=== PATIENT | male | born 1950 | race Caucasian/White ===

== ENCOUNTER 2017-06-29 04:47 | Inpatient (IN) | payer MEDICARE, BC ==
[2017-06-29] MEDS ORDERED: methylPREDNISolone Sod Succ/PF 125 MG/2 ML VIAL ONE (05:09)
[2017-06-29 05:34] LABS: #Basophils 0.1 thou/uL (0.0-0.2); #Eosinphils 0.2 thou/uL (0.0-0.7); #Lymphocytes 2.1 thou/uL (1.20-3.40); #Monocytes 0.8 thou/uL (0.11-0.59); #Neutrophils 4.6 thou/uL (1.40-6.50); %Basophils 0.7 % (0.0-1.0); %Eosinophils 3.1 % (0.0-10.0); %Lymphocytes 27.1 % (21.0-51.0); %Monocytes 9.7 % (0.0-10.0); %Neutrophils 59.3 % (42.0-75.0); Mean Corpuscular HGB CONC 33.4 g/dL (32.0-36.0); Mean Corpuscular Hemoglobin 30.9 pg (27.0-31.0); Mean Corpuscular Volume 92.6 fl (80.0-94.0); Mean Platelet Volume 8.8 fL (7.4-10.4); Platelet Count 177 thou/uL (130-400); RBC Distribution Width 12.8 % (11.5-14.5); White Blood Cell (WBC) Count 7.8 thou/uL (4.8-10.8)
[2017-06-29 05:53] LABS: ALT (SGPT) 27 U/L (8-55); AST (SGOT) 20 U/L (5-34); Alkaline Phosphatase 94 U/L (40-150); Anion Gap 14 mmol/L (10-20); BUN (Urea Nitrogen) 17 mg/dL (8.4-25.7); Bilirubin, Total 0.6 mg/dL (0.2-1.2); Calc. Creatinine Clearance 0 mL/min (70-130); Carbon Dioxide 20 mmol/L (23-31); Chloride 110 mmol/L (98-107); Estimated GFR-MDRD 59; Globulin 3.3 g/dL (2.4-3.5); Glucose 99 mg/dL (80-115); Potassium 4.4 mmol/L (3.5-5.1); Protein, Total 7.3 g/dL (5.8-8.1); Sodium 140 mmol/L (136-145)
[2017-06-29 05:55] LABS: CKMB 2.6 ng/mL (0-6.6); Troponin I 0.071 ng/mL (< 0.028)
[2017-06-29] MEDS ORDERED: Furosemide 100 MG/10 ML VIAL ONE (06:40)
--- NOTE | 2017-06-29 08:08 | RAD ---
CHEST ONE VIEW PORTABLE: History: 66-year-old male with chest pain and shortness of breath. Comparison: 10-27-15 FINDINGS: Borderline cardiomegaly with post op underlying sternotomy and left ICD changes. Mild bilateral vascu lar congestion, overall stable from prior study. No confluent pneumonia or other acute process. IMPRESSION: Stable bilateral vascular congestion. POS: [facility]
--- NOTE | 2017-06-29 08:18 | PDOC.FPRHP ---
- History of Present Illness Chief Complaint: SOB History of Present Illness: Patient with known CAD and CHF EF25% who presents acutely short of breath starting this morning at 4 AM. He was lying flat and woke up and could not catch his breath. He has not had recent cough, fever, or chills. he has been taking his medications only intermittedly. no leg pain or swelling. says he snores so loud, she cant sleep in the same room and children have all witnessed apneic events when he sleeps. ED Course: recieved duoneb, IV steroids, and IV lasix - Allergies/Adverse Reactions Allergies Allergy/AdvReac Type Severity Reaction Status Date / Time No Known Allergies Allergy Verified 03/07/15 00:33 - Home Medications Medication Instructions Recorded Confirmed Type Atorvastatin Calcium [Lipitor] 40 mg PO HS #0 tab 03/09/15 06/29/17 Rx Lisinopril [Zestril] 5 mg PO DAILY #0 tab 03/09/15 Rx Furosemide [Lasix] 40 mg PO DAILY 06/29/17 06/29/17 History Metoprolol Succinate [Toprol XL] 25 mg PO BID 06/29/17 History - History PMHx: CAD, CHF EF 25%, circulatory issues in feet, close to emphysema, likely sleep apnea, skin cancer (possibly [place]) PSHx: 3 Vessel CABG, stents in vessels in legs, FHx: Cancer of the lung, and throat, Social: 1-2 packs a day for 45 years, beers 12 on a weekend, - Review of Systems General: denies: fever/chills, weight/appetite/sleep changes, night sweats Eyes: denies: eye pain, vision changes ENT: denies: nasal congestion, rhinorrhea Respiratory: reports: cough, shortness of breath. denies: congestion Cardiovascular: reports: edema, paroxysmal nocturnal dyspnea, orthopnea. denies : chest pain, palpitation Gastrointestinal: denies: nausea, vomiting, diarrhea, constipation Genitourinary: denies: incontinence, dysuria Skin: denies: rashes, lesions Musculoskeletal: denies: pain, tenderness, stiffness Neurological: denies: numbness, syncope Psychological: denies: anxiety, depression - Vital signs BP: 177/90 HR: 79 RR: 24 Tmax: 97.6 Pox: 98% on 2L Wt: 104 kg - Physical Exam Constitutional: NAD, awake, alert and oriented, well developed -Constitutional: Obese, apparent apnea when sleeping Neck: supple, FROM, trachea midline Chest: no-tender to palpation, no lesions Heart: RRR, normal S1/S2, no murmurs/rubs/gallops -Lungs: Bibasilar crackles, other [place] CTAB Musculoskeletal: normal structure, normal tone, ROM grossly normal Neurological: no focal deficit, CN II-XII intact, normal sensation Skin: no rash/lesions, good turgor Heme/Lymphatic: no unusual bruising or bleeding, no purpura, no petechia Psychiatric: normal mood and affect, good judgment and insight, intact recent and remote memory FMR H&P: Results - Labs Result Diagrams: 06/29/17 05:17 06/29/17 05:17 Lab results: WBC 7.8 thou/uL (4.8-10.8) 06/29/17 05:17 Hgb 17.0 g/dL (14.0-18.0) 06/29/17 05:17 Hct 50.9 % (42.0-52.0) 06/29/17 05:17 MCV 92.6 fl (80.0-94.0) 06/29/17 05:17 Plt Count 177 thou/uL (130-400) 06/29/17 05:17 Neutrophils % 59.3 % (42.0-75.0) 06/29/17 05:17 Sodium 140 mmol/L (136-145) 06/29/17 05:17 Potassium 4.4 mmol/L (3.5-5.1) 06/29/17 05:17 Chloride 110 mmol/L (98-107) H 06/29/17 05:17 Carbon Dioxide 20 mmol/L (23-31) L 06/29/17 05:17 BUN 17 mg/dL (8.4-25.7) 06/29/17 05:17 Creatinine 1.24 mg/dL (0.6-1.3) 06/29/17 05:17 Glucose 99 mg/dL (80-115) 06/29/17 05:17 Lactic Acid 2.3 mmol/L (0.5-2.2) H 06/29/17 05:17 Calcium 9.0 mg/dL (7.8-10.44) 06/29/17 05:17 Total Bilirubin 0.6 mg/dL (0.2-1.2) 06/29/17 05:17 AST 20 U/L (5-34) 06/29/17 05:17 ALT 27 U/L (8-55) 06/29/17 05:17 Alkaline Phosphatase 94 U/L (40-150) 06/29/17 05:17 CK-MB (CK-2) 2.6 ng/mL (0-6.6) 06/29/17 05:17 B-Natriuretic Peptide 882.8 pg/mL (0-100) H 06/29/17 05:17 Serum Total Protein 7.3 g/dL (5.8-8.1) 06/29/17 05:17 Albumin 4.0 g/dL (3.4-4.8) 06/29/17 05:17 Laboratory Tests 06/29/17 06/29/17 06/29/17 05:17 08:09 11:29 Troponin I 0.071 H 0.064 H 0.053 H - EKG Interpretation EKG: NSR with infrequent PAC and non specific changes to T waves in II and anterior leads, poor R wave progression. - Radiology Interpretation Chest x-ray Status: image reviewed by me, report reviewed by me Additional comment: pulmonary edema. no lobar consolidation. FMR H&P: A/P - Problem List (1) Acute on chronic systolic (congestive) heart failure Current Visit: No Status: Acute Code(s): I50.23 - ACUTE ON CHRONIC SYSTOLIC (CONGESTIVE) HEART FAILURE (2) CKD (chronic kidney disease) stage 3, GFR 30-59 ml/min Current Visit: Yes Status: Chronic Code(s): N18.3 - CHRONIC KIDNEY DISEASE, STAGE 3 (MODERATE) (3) COPD (chronic obstructive pulmonary disease) Current Visit: No Status: Acute Qualifiers: COPD type: emphysema (4) Coronary artery disease Current Visit: No Status: Chronic Code(s): I25.10 - ATHSCL HEART DISEASE OF [place] CORONARY ARTERY W/O ANG PCTRS Qualifiers: Coronary Disease-Associated Artery/Lesion type: bypass graft (5) Peripheral vascular disease Current Visit: No Status: Chronic Code(s): I73.9 - PERIPHERAL VASCULAR DISEASE, UNSPECIFIED (6) Tobacco abuse Current Visit: No Status: Chronic Code(s): Z72.0 - TOBACCO USE (7) Hypertensive urgency Current Visit: Yes Status: Suspected Code(s): I16.0 - HYPERTENSIVE URGENCY Assessment and Plan: - Plan 1. Acute on chronic CHF exacerbation, EF 25% with 2/3 diastolic failure- CXR and symptoms consistent with PND with pulmonary edema. He takes his medications intermittedly. He has single chamber ICD from 2016. Will diurese and continue o2 supplementation. optimize home meds and encourage compliance. 2. Hypertensive urgency, resolved- some initial pressures were 200s/120s. He does not know his baseline but he does not take his BP consistently. with SOB, cannot rule out related to BP but more likely SOB is related to CHF. BP improved significantly with one dose of hydralazine to 165/90. restart oral home meds. 3. Chronic uncontrolled HTN- Restart lisinopril and metoprol and monitor. 4. CAD s/p CABG- cont asa and statin 5. CKD 3- monitor with diarusisl. 6. Suspected ZOE-will use CPAP at night. 7. COPD- Duonebs as a trial for symptomatic relief 8. Tobacco abuse- strongly suggest to quit. 9. Binge drinking- will service counselor against on weekends. DVT ppx lovenox Disposition/LOS: Inpatient, likely 3 days Attending Addendum - Attending Addendum Date/Time: 06/29/17 375 I personally evaluated the patient and discussed the management with Dr. Stevenson. I agree with the History, Examination, Assessment and Plan documented above with any addition or exceptions noted below. The patient presented to the ER with acute onset of shortness of breath. Symptoms consistent with CHF exacerbation, hypertensive urgency, ckd. Patient was seen in the ER this morning at 1000.
[2017-06-29] MEDS ORDERED: hydrALAZINE 20 MG/ML VIAL ONE (08:42)
[2017-06-29 08:54] LABS: Troponin I 0.064 ng/mL (< 0.028)
[2017-06-29 09:28] LABS: Lactic Acid 2.4 mmol/L (0.5-2.2)
[2017-06-29] MEDS ORDERED: Ondansetron ODT 4 MG TAB PO PRN (09:50)
[2017-06-29] MEDS ORDERED: Calcium Carbonate 500 MG ChewTAB PO PRN (09:50)
[2017-06-29] MEDS ORDERED: Acetaminophen 325 MG TAB PO PRN (09:50)
[2017-06-29] MEDS ORDERED: Nicotine 21 MG PATCH TD SCH (11:00)
[2017-06-29] MEDS ORDERED: Enoxaparin Sodium 40 MG/0.4 ML SYRINGE SC SCH (11:00)
[2017-06-29] MEDS ORDERED: Enoxaparin Sodium 40 MG/0.4 ML SYRINGE ONE (11:02)
[2017-06-29 12:06] LABS: Troponin I 0.053 ng/mL (< 0.028)
[2017-06-29 19:28] VITALS: BMI 34.4
[2017-06-29] MEDS: Furosemide 40 MG/4 ML VIAL SLOW IVP SCH (20:33)
[2017-06-29] MEDS ORDERED: Atorvastatin Calcium 40 MG TAB PO SCH (21:00)
[2017-06-29] MEDS: Famotidine 20 MG TAB PO SCH (21:45)
[2017-06-30] MEDS: Furosemide 40 MG/4 ML VIAL SLOW IVP SCH ×2 (05:21→13:13)
[2017-06-30 07:22] LABS: Lactic Acid 1.5 mmol/L (0.5-2.2)
[2017-06-30 07:25] LABS: Anion Gap 15 mmol/L (10-20); Calc. Creatinine Clearance 88 mL/min (70-130); Calcium 9.1 mg/dL (7.8-10.44); Carbon Dioxide 24 mmol/L (23-31); Chloride 105 mmol/L (98-107); Estimated GFR-MDRD 60; Glucose 103 mg/dL (80-115); Potassium 4.3 mmol/L (3.5-5.1); Sodium 140 mmol/L (136-145)
[2017-06-30] MEDS: Famotidine 20 MG TAB PO SCH (08:02)
[2017-06-30 08:21] LABS: BUN (Urea Nitrogen) 22 mg/dL (8.4-25.7)
--- NOTE | 2017-06-30 08:40 | PDOC.FM ---
- Subjective Subjective: Patient reports that his breathing has improved significantly since admission. He is on 1.5L O2 at this time. He slept well overnight is eating without problems. Denies any LE swelling or chest pain. - Objective MAR Reviewed: Yes Vital Signs & Weight: Vital Signs (12 hours) Temp Pulse Resp BP BP BP Pulse Ox 06/30/17 08:03 144/65 H 06/30/17 07:48 98.0 F 70 20 144/65 H 97 06/30/17 07:02 99 06/30/17 06:59 73 16 99 06/30/17 03:20 98.0 F 74 14 146/69 H 96 06/30/17 00:00 98.1 F 69 18 129/63 94 L Weight Weight 102.875 kg I&O: 06/29/17 06/30/17 07/01/17 06:59 06:59 06:59 Intake Total 240 Output Total 100 Balance 140 Result Diagrams: 06/29/17 05:17 06/30/17 06:51 <Marisol Thurman - Last Filed: 06/30/17 08:39> - Objective Vital Signs & Weight: Vital Signs (12 hours) Temp Pulse Resp BP BP BP BP 06/30/17 11:12 97.9 F 60 22 H 131/62 06/30/17 10:40 58 L 18 06/30/17 08:03 144/65 H 06/30/17 08:00 98.0 F 70 20 06/30/17 07:48 98.0 F 70 20 144/65 H 06/30/17 07:02 06/30/17 06:59 73 16 06/30/17 03:20 98.0 F 74 14 146/69 H Pulse Ox 06/30/17 11:12 95 06/30/17 10:40 97 06/30/17 08:03 06/30/17 08:00 97 06/30/17 07:48 97 06/30/17 07:02 99 06/30/17 06:59 99 06/30/17 03:20 96 Weight Weight 102.875 kg I&O: 06/29/17 06/30/17 07/01/17 06:59 06:59 06:59 Intake Total 240 Output Total 100 Balance 140 Result Diagrams: 06/29/17 05:17 06/30/17 06:51 <Salma Hanson - Last Filed: 06/30/17 12:59> Phys Exam - Physical Examination Constitutional: NAD HEENT: moist MMs Respiratory: no wheezing, no rales, no rhonchi, clear to auscultation bilateral Cardiovascular: RRR, no significant murmur, no rub Gastrointestinal: soft, non-tender, no distention, positive bowel sounds Musculoskeletal: no edema, pulses present Neurological: non-focal, normal sensation, moves all 4 limbs Psychiatric: normal affect, A&O x 3 Skin: normal turgor, cap refill <2 seconds <Marisol Thurman - Last Filed: 06/30/17 08:39> Dx/Plan (1) CKD (chronic kidney disease) stage 3, GFR 30-59 ml/min Code(s): N18.3 - CHRONIC KIDNEY DISEASE, STAGE 3 (MODERATE) Status: Chronic (2) Hypertensive urgency Code(s): I16.0 - HYPERTENSIVE URGENCY Status: Suspected (3) Acute on chronic systolic (congestive) heart failure Code(s): I50.23 - ACUTE ON CHRONIC SYSTOLIC (CONGESTIVE) HEART FAILURE Status : Acute (4) COPD (chronic obstructive pulmonary disease) Status: Acute QualifierTitle: COPD type: emphysema (5) Coronary artery disease Code(s): I25.10 - ATHSCL HEART DISEASE OF [place] CORONARY ARTERY W/O ANG PCTRS Status: Chronic QualifierTitle: Coronary Disease-Associated Artery/Lesion type: bypass graft [place] vs. transplanted heart: [place] heart Associated angina: angina presence unspecified Qualified Code(s): I25.810 - Atherosclerosis of coronary artery bypass graft(s) without angina pectoris (6) Peripheral vascular disease Code(s): I73.9 - PERIPHERAL VASCULAR DISEASE, UNSPECIFIED Status: Chronic (7) Tobacco abuse Code(s): Z72.0 - TOBACCO USE Status: Chronic - Plan Plan: Acute on chronic CHF exacerbation The patient's EF 25% is with 2/3 diastolic failure. His CXR and symptoms consistent with PND with pulmonary edema. He takes his medications intermittently. He has single chamber ICD from 2016. BNP 882.8 -Monitor on tele -Lasix 40mg IV BID -O2 prn, has been on 1.5 L, but was satting 97% - took off O2 this AM and will see how the patient does off oxygen. -Encouraged medication compliance -Repeat CXR this AM Hypertensive urgency, resolved Initial pressures were 200s/120s. He does not know his baseline but he does not take his BP consistently. The patient had SOB, so cannot rule out related to BP, but more likely SOB is related to CHF. BP improved significantly with one dose of hydralazine to 165/90. -Restart oral home meds (Entresto, Metoprolol) -Monitor BP Chronic uncontrolled HTN -Restart Entresto and metoprol and monitor. CAD s/p CABG -cont asa and statin CKD 3 -Monitor with diuresis, appears at baseline Suspected ZOE -will use CPAP at night. COPD -Duonebs as a trial for symptomatic relief Tobacco abuse Patient has desire to quit. Currently smokes 2ppd -counseled on smoking cessation. -Encouraged f/u with PCP regarding this Binge drinking -Counseled against this Dispo: d/c home once patient is satting > 92% off O2. 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 <Marisol Thurman - Last Filed: 06/30/17 08:39> (1) Acute on chronic systolic (congestive) heart failure Code(s): I50.23 - ACUTE ON CHRONIC SYSTOLIC (CONGESTIVE) HEART FAILURE Status : Acute (2) CKD (chronic kidney disease) stage 3, GFR 30-59 ml/min Code(s): N18.3 - CHRONIC KIDNEY DISEASE, STAGE 3 (MODERATE) Status: Chronic (3) COPD (chronic obstructive pulmonary disease) Status: Acute Qualifiers: COPD type: emphysema (4) Coronary artery disease Code(s): I25.10 - ATHSCL HEART DISEASE OF [place] CORONARY ARTERY W/O ANG PCTRS Status: Chronic Qualifiers: Coronary Disease-Associated Artery/Lesion type: bypass graft [place] vs. transplanted heart: [place] heart Associated angina: angina presence unspecified Qualified Code(s): I25.810 - Atherosclerosis of coronary artery bypass graft(s) without angina pectoris (5) Peripheral vascular disease Code(s): I73.9 - PERIPHERAL VASCULAR DISEASE, UNSPECIFIED Status: Chronic (6) Tobacco abuse Code(s): Z72.0 - TOBACCO USE Status: Chronic (7) Hypertensive urgency Code(s): I16.0 - HYPERTENSIVE URGENCY Status: Suspected <Salma Hanson - Last Filed: 06/30/17 12:59> Attending Addendum - Attending Addendum Date/Time: 06/30/17 [id number] I personally evaluated the patient and discussed the management with Dr. Thurman. I agree with the History, Examination, Assessment and Plan documented above with any addition or exceptions noted below. The patient is doing well. He states he feels better and wants to go home. o2 sats 97% on room air during rounds. If O2 sats remains stable, he will be discharged this afternoon. Discussed importance of getting a primary care physician. Will consider coming to our clinic. <Salma Hanson - Last Filed: 06/30/17 12:59>
[2017-06-30] MEDS ORDERED: Nicotine 21 MG PATCH TD SCH (09:00)
[2017-06-30] MEDS ORDERED: Lisinopril 10 MG TAB PO SCH (09:00)
[2017-06-30] MEDS ORDERED: Prevnar 13-Val Conj/PF 0.5 ML SYRINGE IM ONE (09:00)
[2017-06-30] MEDS ORDERED: Enoxaparin Sodium 40 MG/0.4 ML SYRINGE SC SCH (09:00)
--- NOTE | 2017-06-30 10:11 | RAD ---
RADIOGRAPH CHEST 2 VIEWS: HISTORY: A 66-year-old male with congestive heart failure. FINDINGS: There is no air space density, pulmonary edema, pleural effusion, pneumothorax, or cardiomegaly. The re are sternotomy wires. There is a left subclavian single lead AICD. IMPRESSION: 1. No acute cardiopulmonary findings. 2. Status post coronary artery bypass graft surgery is evidence for coronary atherosclerotic disease ; ICD-10: I25.10. 3. Automatic implantable cardioverter/defibrillator. topher [] POS: [facility]
[2017-06-30 13:40] VITALS: BP 138/65; TEMP 97.6
--- NOTE | 2017-07-01 15:26 | DIS-2 ---
DATE OF ADMISSION: 06/29/2017 DATE OF DISCHARGE: 06/30/2017 ADMITTING RESIDENT: Rob Stevenson MD DISCHARGE RESIDENT: Marisol Thurman MD ATTENDING: Salma Hanson M.D. CONSULTATIONS: None. PROCEDURES: None. PRIMARY DIAGNOSES: 1. Acute on chronic congestive heart failure exacerbation. 2. Hypertensive urgency. SECONDARY DIAGNOSES: 1. Chronic uncontrolled hypertension. 2. Coronary artery disease, status post coronary artery bypass graft. 3. Chronic kidney disease 3. 4. Suspected obstructive sleep apnea. 5. Chronic obstructive pulmonary disease. 6. Tobacco abuse. 7. Binge drinking. DISCHARGE MEDICATIONS: 1. Aspirin 81 mg p.o. daily. 2. Atorvastatin 40 mg p.o. at bedtime. 3. Lasix 40 mg p.o. daily. 4. Metoprolol succinate 12.5 mg p.o. b.i.d. 5. Entresto 49/51 mg one tab p.o. daily. DISCONTINUED MEDICATIONS: None. HISTORY OF PRESENT ILLNESS AND HOSPITAL COURSE: This is a 66-year-old male with past medical history of CHF with an ejection fraction of 25%, who presented to the ER due to acute onset shortness of toña ath that was associated with orthopnea and dyspnea on exertion. The patient was found to have a BNP of 882 and bilateral vascular congestion on a chest x-ray. The patient was treated with Lasix 40 mg IV b.i.d. and his shortness of breath improved significantly. The patient was initially placed on ox ygen and was satting 97%-100% on oxygen. This was able to be weaned off by the patient's second day of hospitalization. The patient also reports intermittently taking medications and initially the pat ient's blood pressures were found to be in the 200s over 120s and so the patient was given hydralazin e, which improved his blood pressure 165/90. The patient was continued on his home medications by [facility] and it was encouraged for him to be more compliant with taking his home medications. Patient als o has suspected obstructive sleep apnea and is recommended for him to follow up [facility]. He was given our clinic card of [facility] to potentiall y follow up at our clinic, as the patient has not actually ever seen Dr. Cohen before and the patien t will hopefully establish with us to potentially worked him up for obstructive sleep apnea. The pat sonja also has a history of tobacco abuse and binge drinking these were both counseled against. DISPOSITION: Stable. DISCHARGE INSTRUCTIONS: 1. Location: Home. 2. Diet: Heart healthy and fluid restricted to 1500 mL. 3. Activity: As tolerated. 4. Follow up with [facility] within 5-[address] Smith within 1 m [facility].
--- NOTE | 2017-07-17 16:30 | EKG ---
Test Reason : Blood Pressure : / mmHG Vent. Rate : 096 BPM Atrial Rate : 096 BPM P-R Int : 178 ms QRS Dur : 082 ms QT Int : 360 ms P-R-T Axes : 065 -13 179 degrees QTc Int : 454 ms Sinus rhythm with Premature atrial complexes Anteroseptal infarct , age undetermined Abnormal ECG Confirmed by HERNÁN GREGORIO ([id number]), pictures editor JUSTINE CASAREZ ([id number]) on 07/17/2017 4:29:44 PM Referred By: Confirmed By:HERNÁN GREGORIO
== END 2017-06-30 13:54 | disposition home or self-care (01) | DRG 291 ==
LOC: ERS 04:47 → ERHOLD 07:17 → 2NO 18:49
PROVIDERS: ADMIT Family Medicine; ATTEND Family Medicine
DX: I13.0 Hypertensive heart and chronic kidney disease with heart failure and stage 1 through stage 4 chronic kidney disease, or unspecified chronic kidney disease (principal); I50.33 Acute on chronic diastolic (congestive) heart failure; J44.9 Chronic obstructive pulmonary disease, unspecified; I73.9 Peripheral vascular disease, unspecified; F10.10 Alcohol abuse, uncomplicated; F17.210 Nicotine dependence, cigarettes, uncomplicated; I16.0 Hypertensive urgency; N18.3 Chronic kidney disease, stage 3 (moderate); I25.10 Atherosclerotic heart disease of native coronary artery without angina pectoris; Z95.810 Presence of automatic (implantable) cardiac defibrillator; G47.33 Obstructive sleep apnea (adult) (pediatric); Z95.1 Presence of aortocoronary bypass graft
CPT/HCPCS: 36415; 71045; 71046; 80048; 80053; 82553; 83605; 83880; 84484; 85025; 90471; 90670; 93005; 93798; 94640; 94660; 94760; 96372; 96374; 96375; G0009; J0360; J1650; J1940; J2930; J7620

== ENCOUNTER 2018-03-09 02:36 | Observation (INO) | payer MEDICARE, BC ==
[2018-03-09] MEDS ORDERED: methylPREDNISolone Sod Succ/PF 125 MG/2 ML VIAL ONE (02:44)
[2018-03-09 02:59] LABS: #Basophils 0.1 thou/uL (0.0-0.2); #Eosinphils 0.3 thou/uL (0.0-0.7); #Lymphocytes 2.1 thou/uL (1.20-3.40); #Monocytes 0.8 thou/uL (0.11-0.59); %Basophils 0.5 % (0.0-1.0); %Eosinophils 2.2 % (0.0-10.0); %Lymphocytes 17.2 % (21.0-51.0); %Monocytes 6.6 % (0.0-10.0); %Neutrophils 73.6 % (42.0-75.0); Hemoglobin 16.8 g/dL (14.0-18.0); Mean Corpuscular HGB CONC 33.7 g/dL (32.0-36.0); Mean Corpuscular Volume 91.9 fL (78.0-98.0); Mean Platelet Volume 8.7 fL (7.4-10.4); Platelet Count 204 thou/uL (130-400); RBC Distribution Width 13.3 % (11.5-14.5); Red Blood Cell (RBC) Count 5.43 mill/uL (4.70-6.10); White Blood Cell (WBC) Count 12.3 thou/uL (4.8-10.8)
[2018-03-09 03:38] LABS: Albumin 3.9 g/dL (3.4-4.8)
[2018-03-09 03:39] LABS: Chloride 109 mmol/L (98-107); Potassium 4.8 mmol/L (3.5-5.1)
[2018-03-09 03:40] LABS: Calcium 8.6 mg/dL (7.8-10.44); Sodium 142 mmol/L (136-145)
[2018-03-09 03:41] LABS: CKMB 2.2 ng/mL (0-6.6); Globulin 3.4 g/dL (2.4-3.5); Glucose 129 mg/dL (80-115); Protein, Total 7.3 g/dL (5.8-8.1)
[2018-03-09 03:42] LABS: Anion Gap 19 mmol/L (10-20); Carbon Dioxide 19 mmol/L (23-31)
[2018-03-09 03:43] LABS: Bilirubin, Total 0.6 mg/dL (0.2-1.2)
[2018-03-09 03:44] LABS: Alkaline Phosphatase 124 U/L (40-150); Calc. Creatinine Clearance 0 mL/min (70-130); Estimated GFR-MDRD 45
[2018-03-09 03:45] LABS: BUN (Urea Nitrogen) 19 mg/dL (8.4-25.7)
[2018-03-09 03:46] LABS: AST (SGOT) 25 U/L (5-34)
[2018-03-09 03:47] LABS: ALT (SGPT) 33 U/L (8-55)
[2018-03-09] MEDS ORDERED: Aspirin 325 MG TAB ONE (05:05)
[2018-03-09] MEDS ORDERED: Nitroglycerin 2% Ointment 1 INCH/1 GM Packet ONE (05:06)
[2018-03-09] MEDS ORDERED: Furosemide 40 MG/4 ML VIAL ONE (05:06)
--- NOTE | 2018-03-09 08:18 | RAD ---
SINGLE VIEW OF THE CHEST: Comparison: 06-30-17 History: Shortness of breath, intermittent chest pain for one day. FINDINGS: Single view of the chest shows an enlarged but stable cardiomediastinal silhouette. The patient is st atus post sternotomy. The pacemaker is unchanged in position. Decreased interstitial markings are pre sent. There is no evidence of consolidation, mass, or pleural effusion. IMPRESSION: Cardiomegaly without evidence of acute cardiopulmonary disease. POS: [facility]
--- NOTE | 2018-03-09 08:27 | PDOC.FPRHP ---
- History of Present Illness Chief Complaint: SOB History of Present Illness: Mr. Villafuerte presents today with SOB for the past two days It was not quite as bad yesterday but this morning at approximately 0200 he had SOB that would not resolve. He reports cough and orthopnea along with this. Denies chest pain, palpitations, syncope, abdominal upset, N/V/D, fever or chills. He has been taking his medications as prescribed. Sees Dr. Smith regularly but does not report an echocardiogram in the past year. ED Course: nitro, lasix, asa, prednisone, duoneb CBC, CMP, Trop, BNP, CXR - Allergies/Adverse Reactions Allergies Allergy/AdvReac Type Severity Reaction Status Date / Time No Known Allergies Allergy Verified 03/09/18 16:44 - Home Medications Medication Instructions Recorded Confirmed Type Atorvastatin Calcium [Lipitor] 40 mg PO HS #0 tab 03/09/15 03/09/18 Rx Aspirin [Ecotrin Low Strength] 81 mg PO DAILY 06/29/17 03/09/18 History Furosemide [Lasix] 40 mg PO DAILY 06/29/17 03/09/18 History Metoprolol Succinate [Toprol XL] 12.5 mg PO BID 06/29/17 03/09/18 History Sacubitril/Valsartan 49/51 1 tab PO DAILY 06/29/17 03/09/18 History [Entresto 49 mg-51 mg Tablet] Fluticasone Propionate [Flonase 1 gm NASAL DAILY #1 bot 03/10/18 Rx Nasal [place]] guaiFENesin/DM ER [Mucinex DM] 1 tab PO Q12HR #60 tab 03/10/18 Rx - History PMHx: CHF, CAD, COPD, HTN PSHx: CABGx4 2011, FHx: head, neck, lung cancer Social:30 pack year smoking history - Review of Systems General: denies: fever/chills, weight/appetite/sleep changes Eyes: denies: eye pain, vision changes ENT: denies: nasal congestion, rhinorrhea Respiratory: reports: cough, congestion, shortness of breath Cardiovascular: denies: chest pain, palpitation, edema Gastrointestinal: denies: nausea, vomiting, diarrhea Genitourinary: denies: incontinence, dysuria Skin: denies: rashes, lesions Musculoskeletal: denies: pain, tenderness Neurological: denies: numbness, syncope Psychological: denies: anxiety, depression - Vital signs BP: 146/65 HR: 70 RR: 18 Tmax: 98.4 Pox: 94% on 2L Wt: 104.3kg FMR H&P: Results - Labs Result Diagrams: 03/10/18 05:37 03/10/18 05:37 Lab results: WBC 12.3 thou/uL (4.8-10.8) H 03/09/18 02:50 Hgb 16.8 g/dL (14.0-18.0) 03/09/18 02:50 Hct 49.9 % (42.0-52.0) 03/09/18 02:50 MCV 91.9 fL (78.0-98.0) 03/09/18 02:50 Plt Count 204 thou/uL (130-400) 03/09/18 02:50 Neutrophils % 73.6 % (42.0-75.0) 03/09/18 02:50 Sodium 142 mmol/L (136-145) 03/09/18 02:50 Potassium 4.8 mmol/L (3.5-5.1) 03/09/18 02:50 Chloride 109 mmol/L (98-107) H 03/09/18 02:50 Carbon Dioxide 19 mmol/L (23-31) L 03/09/18 02:50 BUN 19 mg/dL (8.4-25.7) 03/09/18 02:50 Creatinine 1.54 mg/dL (0.7-1.3) H 03/09/18 02:50 Glucose 129 mg/dL (80-115) H 03/09/18 02:50 Calcium 8.6 mg/dL (7.8-10.44) 03/09/18 02:50 Total Bilirubin 0.6 mg/dL (0.2-1.2) 03/09/18 02:50 AST 25 U/L (5-34) 03/09/18 02:50 ALT 33 U/L (8-55) 03/09/18 02:50 Alkaline Phosphatase 124 U/L (40-150) 03/09/18 02:50 CK-MB (CK-2) 2.2 ng/mL (0-6.6) 03/09/18 02:50 B-Natriuretic Peptide 868.5 pg/mL (0-100) H 03/09/18 02:50 Serum Total Protein 7.3 g/dL (5.8-8.1) 03/09/18 02:50 Albumin 3.9 g/dL (3.4-4.8) 03/09/18 02:50 FMR H&P: A/P - Problem List (1) Acute on chronic systolic (congestive) heart failure Current Visit: No Status: Acute Code(s): I50.23 - ACUTE ON CHRONIC SYSTOLIC (CONGESTIVE) HEART FAILURE (2) COPD (chronic obstructive pulmonary disease) Current Visit: No Status: Acute Qualifiers: COPD type: emphysema (3) CKD (chronic kidney disease) stage 3, GFR 30-59 ml/min Current Visit: No Status: Chronic Code(s): N18.3 - CHRONIC KIDNEY DISEASE, STAGE 3 (MODERATE) (4) Coronary artery disease Current Visit: No Status: Chronic Code(s): I25.10 - ATHSCL HEART DISEASE OF [place] CORONARY ARTERY W/O ANG PCTRS Qualifiers: Coronary Disease-Associated Artery/Lesion type: bypass graft [place] vs. transplanted heart: [place] heart Associated angina: angina presence unspecified Qualified Code(s): I25.810 - Atherosclerosis of coronary artery bypass graft(s) without angina pectoris (5) Peripheral vascular disease Current Visit: No Status: Chronic Code(s): I73.9 - PERIPHERAL VASCULAR DISEASE, UNSPECIFIED (6) Tobacco abuse Current Visit: No Status: Chronic Code(s): Z72.0 - TOBACCO USE (7) Hypertensive urgency Current Visit: No Status: Suspected Code(s): I16.0 - HYPERTENSIVE URGENCY - Plan Acute on chronic HFrEF -most likely based on history. troponin and BNP at the level of previous admissions. -s/p 40 mg IV lasix in ED, additional 20 mg at 1600 this afternoon -no reported echocardiogram in the last year, ordered TTE -continue home medications -monitor strict IOs, weigh daily COPD -hx of reported diagnosis, no records of PFTs at this time -few s/s with exam, duoneb, prednisone in ED -q4hr duoneb prn -consider continuing prednisone -procal pending Elevated troponins -elevated to the level that he has been at in past, most likely demand ischemia -trendx3, nitro/asa in ED -nitro, EKG, trop for chest pain MANDA -similar to values in the past -monitor daily cmp -hold fluids CAD - hx of no active chest pain at this pain PVD - aware, monitor Tobacco abuse - encouraged cessation code: full ppx: lovenox Disposition/LOS: monitor on telemetry, diurese and monitor IOs FMR H&P: Upper Level - Pertinent history 67 yo M with PMHx CHF, COPD and CAD s/p CABG who presents with 2 days of worsening shortness of breath. He reports it is primarily problematic when trying to lie flat on his back. He ralso endorses dry cough. Denies chest pain and reports compliance with all medications. - Pertinent findings Labs and imaging reviewed VSS Gen: awake, alert oriented HEENT: atraumatic, normocephalic CV: RRR, sternotomy scar noted RESP: diminished air entry at bases, poor air movement ABD: nontender, bowel sounds present EXT: no edema - Plan Date/Time: 03/09/18 0826 67 yo M here with shortness of breath 2/2 CHF exacerbation, possibly with co- morbid mild COPD exacerbation 1. Acute on chronic CHF exacerbation - Will repeat echo - Continue lasix diuresis - Fluid restrict, daily weights - Home meds 2. COPD with mild exacerbation - Duonebs PRN - Will start steroids if inadequate improvement with diuresis Please see Dr. Baires's note for remainder of A/P I, Esther Deluca MD, PGY-3, have evaluated this patient and agree with findings/ plan as outlined by brand marketing intern resident. Pertinent changes/additions are listed here. Addendum - Attending - Attending Attestation Date/Time: 03/09/18 1105 I personally evaluated the patient and discussed the management with Dr. Baires. I agree with the History, Examination, Assessment and Plan documented above with any addition or exceptions noted below. The patient presents with 2 day history of shortness of breath. He has both copd and CHF. BNP is elevated. Pt is getting lasix and neb treatments. Will repeat echo. There are no signs of infection at this time.
[2018-03-09 09:37] LABS: Troponin I 0.045 ng/mL (< 0.028)
[2018-03-09] MEDS ORDERED: HumaLOG 300 UNITS/3 ML VIAL SC PRN ×2 (10:53)
[2018-03-09] MEDS ORDERED: Dextrose 5% in Water 1,000 ML IV PRN (10:53)
[2018-03-09] MEDS ORDERED: Labetalol HCl 100 MG/20 ML VIAL SLOW IVP PRN (10:53)
[2018-03-09] MEDS ORDERED: Ondansetron ODT 4 MG TAB PO PRN (10:53)
[2018-03-09] MEDS ORDERED: Dextrose 50% Abboject 50 ML SYRINGE SLOW IVP PRN (10:53)
[2018-03-09] MEDS ORDERED: Acetaminophen 325 MG TAB PO PRN (10:53)
[2018-03-09] MEDS ORDERED: Enoxaparin Sodium 40 MG/0.4 ML SYRINGE SC SCH (11:15)
[2018-03-09] MEDS ORDERED: Furosemide 20 MG/2 ML VIAL SLOW IVP SCH (14:00)
[2018-03-09] MEDS: Furosemide 20 MG/2 ML VIAL SLOW IVP SCH (16:56)
[2018-03-09 18:20] VITALS: BMI 32.8
[2018-03-09] MEDS ORDERED: Atorvastatin Calcium 40 MG TAB PO SCH (21:00)
[2018-03-10] MEDS: Furosemide 20 MG/2 ML VIAL SLOW IVP SCH ×2 (05:50→15:10)
[2018-03-10 05:55] LABS: #Lymphocytes 2.1 thou/uL (1.20-3.40); #Neutrophils 12.9 thou/uL (1.40-6.50); %Basophils 0.2 % (0.0-1.0); %Eosinophils 0.2 % (0.0-10.0); %Lymphocytes 12.9 % (21.0-51.0); %Monocytes 6.5 % (0.0-10.0); %Neutrophils 80.2 % (42.0-75.0); Hemoglobin 15.7 g/dL (14.0-18.0); Mean Corpuscular HGB CONC 32.7 g/dL (32.0-36.0); Mean Corpuscular Hemoglobin 30.4 pg (27.0-31.0); Mean Corpuscular Volume 92.9 fL (78.0-98.0); Mean Platelet Volume 8.7 fL (7.4-10.4); Platelet Count 206 thou/uL (130-400); RBC Distribution Width 13.4 % (11.5-14.5); Red Blood Cell (RBC) Count 5.16 mill/uL (4.70-6.10); White Blood Cell (WBC) Count 16.1 thou/uL (4.8-10.8)
--- NOTE | 2018-03-10 06:13 | PDOC.FM ---
- Subjective Subjective: Mr. Villafuerte is resting comfortably in bed. He reports feeling much better, SOB is improved, no chest pain. he still has a cough and feels congested - Objective Vital Signs & Weight: Vital Signs (12 hours) Temp Pulse Resp BP BP Pulse Ox 03/10/18 03:52 64 18 157/72 H 95 03/09/18 23:38 98.6 F 81 12 133/61 96 03/09/18 19:27 98.5 F 73 12 161/70 H 96 Weight Weight 103.873 kg Result Diagrams: 03/10/18 05:37 03/10/18 05:37 Phys Exam - Physical Examination Constitutional: NAD HEENT: moist MMs, oral pharynx no lesions Neck: no JVD Respiratory: no wheezing, clear to auscultation bilateral Cardiovascular: RRR, no significant murmur, no rub Gastrointestinal: soft, non-tender Musculoskeletal: pulses present, edema present (decreased) Neurological: moves all 4 limbs Psychiatric: normal affect Skin: no rash Dx/Plan (1) Acute on chronic systolic (congestive) heart failure Code(s): I50.23 - ACUTE ON CHRONIC SYSTOLIC (CONGESTIVE) HEART FAILURE Status : Acute (2) COPD (chronic obstructive pulmonary disease) Status: Acute Qualifiers: COPD type: emphysema (3) CKD (chronic kidney disease) stage 3, GFR 30-59 ml/min Code(s): N18.3 - CHRONIC KIDNEY DISEASE, STAGE 3 (MODERATE) Status: Chronic (4) Coronary artery disease Code(s): I25.10 - ATHSCL HEART DISEASE OF [place] CORONARY ARTERY W/O ANG PCTRS Status: Chronic Qualifiers: Coronary Disease-Associated Artery/Lesion type: bypass graft [place] vs. transplanted heart: [place] heart Associated angina: angina presence unspecified Qualified Code(s): I25.810 - Atherosclerosis of coronary artery bypass graft(s) without angina pectoris (5) Peripheral vascular disease Code(s): I73.9 - PERIPHERAL VASCULAR DISEASE, UNSPECIFIED Status: Chronic (6) Tobacco abuse Code(s): Z72.0 - TOBACCO USE Status: Chronic (7) Hypertensive urgency Code(s): I16.0 - HYPERTENSIVE URGENCY Status: Suspected - Plan Plan: Acute on chronic HFrEF -most likely based on history. troponin and BNP at the level of previous admissions. -20mg IV BID -no reported echocardiogram in the last year, TTE pending -continue home medications -monitor strict IOs, weigh daily COPD -hx of reported diagnosis, no records of PFTs at this time -few s/s with exam, duoneb, prednisone in ED -q4hr duoneb prn -start flonase, mucinex, and spiriva -procal neg Elevated troponins -elevated to the level that he has been at in past, most likely demand ischemia -downtrended -nitro, EKG, trop for chest pain MANDA -similar to values in the past -monitor daily cmp -hold fluids CAD - hx of no active chest pain at this point PVD - aware, monitor Tobacco abuse - encouraged cessation code: full ppx: lovenox Dispo: likely DC today with stable EF on echo Addendum - Attending - Attending Attestation Date/Time: 03/10/18 1690 I personally evaluated the patient and discussed the management with Dr. Baires. I agree with the History, Examination, Assessment and Plan documented above with any addition or exceptions noted below. The patient is feeling better. Still waiting on echo to be taken. If echo is done, he can d/c home and f/u in the clinic for the results.
[2018-03-10 06:40] LABS: ALT (SGPT) 23 U/L (8-55); AST (SGOT) 14 U/L (5-34); Albumin 3.5 g/dL (3.4-4.8); Alkaline Phosphatase 87 U/L (40-150); Anion Gap 15 mmol/L (10-20); BUN (Urea Nitrogen) 27 mg/dL (8.4-25.7); Bilirubin, Total 0.6 mg/dL (0.2-1.2); Calc. Creatinine Clearance 81 mL/min (70-130); Calcium 8.8 mg/dL (7.8-10.44); Carbon Dioxide 23 mmol/L (23-31); Chloride 106 mmol/L (98-107); Estimated GFR-MDRD 55; Glucose 117 mg/dL (80-115); Protein, Total 6.5 g/dL (5.8-8.1); Sodium 140 mmol/L (136-145)
[2018-03-10] MEDS ORDERED: Prevnar 13-Val Conj/PF 0.5 ML SYRINGE IM ONE (09:00)
[2018-03-10] MEDS ORDERED: guaiFENesin/DM ER PO SCH (09:00)
[2018-03-10] MEDS ORDERED: Aspirin 81 mg Enteric Coated Tablet PO SCH (09:00)
[2018-03-10] MEDS ORDERED: Fluticasone Propionate Nasal Spray 16 gm Bottle NASAL SCH (09:00)
[2018-03-10] MEDS ORDERED: Sacubitril 49 MG/Valsartan 51 MG TABLET PO SCH (09:00)
[2018-03-10] MEDS ORDERED: Enoxaparin Sodium 40 MG/0.4 ML SYRINGE SC SCH (09:00)
[2018-03-10 15:49] VITALS: BP 144/68; TEMP 97.6
[2018-03-11] MEDS ORDERED: Spiriva 18 MCG CAP (Box of 5 Caps) INH SCH (07:00)
--- NOTE | 2018-03-12 11:42 | DIS ---
DATE OF ADMISSION: 03/09/2018 DATE OF DISCHARGE: 03/10/2018 RESIDENT: Richie Baires DO ADMITTING ATTENDING: Salma Hanson MD DISCHARGE ATTENDING: Salma Hanson MD CONSULTS: None. PROCEDURES: None. IMAGING: Chest x-ray significant for cardiomegaly without evidence of acute cardiopulmonary disease. PRIMARY DIAGNOSIS: Congestive heart failure exacerbation. SECONDARY DIAGNOSIS: 1. Chronic obstructive pulmonary disease. 2. Elevated troponins. 3. Acute kidney injury. 4. Coronary artery disease. 5. Peripheral vascular disease. 6. Tobacco abuse. DISCHARGE MEDICATIONS: 1. Lipitor 40 mg p.o. at bedtime. 2. Aspirin 81 mg p.o. daily. 3. Entresto 1 tablet p.o. daily. 4. Lasix 40 mg p.o. Daily. 5. Metoprolol 12.5 mg p.o. b.i.d. 6. Flonase 1 spray nasal daily. 7. Mucinex DM 1 tablet p.o. q.12 hours. DISCONTINUED MEDICATIONS: None. HISTORY OF PRESENT ILLNESS/HOSPITAL COURSE: Mr. Villafuerte is a 67-year-old male with past medical history significant for coronary artery disease, stents, COPD, and CHF. He presented to the ED with shortness of breath for the past 2 days. He reports significant orthopnea at that time, but denied chest pain, palpitation, syncope, abdominal upset, fever, or chills. He has been taking his medications as prescribed. He sees Dr. Sifuentes regularly and he does not report an echocardiogram in the past year completed during hospital stay. In the ER, he received nitroglycerin, Lasix, aspirin, prednisone, and DuoNeb. He reports that his shortness of breath became much better with a DuoNeb and the Lasix. He was continued to be diuresed and treated for an upper respiratory infection. During this hospital stay, remained afebrile with vital signs stable and tolerating diuresis as well. DISPOSITION: Stable. DISCHARGE INSTRUCTIONS: LOCATION: Home. DIET: Heart healthy, low-sodium. ACTIVITY: As tolerated. FOLLOWUP: 1. Followup with Cardiology in 2 to 3 weeks. 2. Followup with PCP in [address] Patterson. Job ID: [id number] [facility]
--- NOTE | 2018-03-12 22:32 | EKG ---
Test Reason : Blood Pressure : / mmHG Vent. Rate : 095 BPM Atrial Rate : 095 BPM P-R Int : 176 ms QRS Dur : 096 ms QT Int : 360 ms P-R-T Axes : 049 -28 127 degrees QTc Int : 452 ms Normal sinus rhythm Anteroseptal infarct , age undetermined Abnormal ECG Confirmed by REKHA FARAH DO ([id number]), editorial writer STEFAN LONDONO ([id number]) on 03/12/2018 10:31:10 PM Referred By: Confirmed By:REKHA FARAH DO
== END 2018-03-10 18:04 | disposition home or self-care (01) ==
LOC: ERS 02:36 → ERHOLD 05:12 → 2SW 05:29
PROVIDERS: ADMIT Internal Medicine; ATTEND Internal Medicine
DX: I13.0 Hypertensive heart and chronic kidney disease with heart failure and stage 1 through stage 4 chronic kidney disease, or unspecified chronic kidney disease (principal); N18.3 Chronic kidney disease, stage 3 (moderate); I50.23 Acute on chronic systolic (congestive) heart failure; J43.9 Emphysema, unspecified; N17.9 Acute kidney failure, unspecified; I25.10 Atherosclerotic heart disease of native coronary artery without angina pectoris; I73.9 Peripheral vascular disease, unspecified; F17.210 Nicotine dependence, cigarettes, uncomplicated; I16.0 Hypertensive urgency; Z79.82 Long term (current) use of aspirin; Z79.899 Other long term (current) drug therapy; Z95.1 Presence of aortocoronary bypass graft
CPT/HCPCS: 71045; 80053 ×2; 82553; 82947 ×3; 82962 ×2; 83880; 84145; 84484 ×2; 85025 ×2; 90662; 90670; 93005; 93306; 94640 ×3; 96372; 96374; 96375; 96376; 99285; G0008; G0009; G0378 ×2; 36415; 36416; 90471; J1650; J1940; J2930; J7620

== ENCOUNTER 2018-05-15 00:36 | Emergency (ER) | payer MEDICARE, BC ==
[2018-05-15 01:12] LABS: #Eosinphils 0.2 thou/uL (0.0-0.7); #Lymphocytes 2.6 thou/uL (1.20-3.40); %Basophils 0.2 % (0.0-1.0); %Eosinophils 1.8 % (0.0-10.0); %Monocytes 10.9 % (0.0-10.0); %Neutrophils 57.1 % (42.0-75.0); Hemoglobin 17.1 g/dL (14.0-18.0); Mean Corpuscular HGB CONC 34.1 g/dL (32.0-36.0); Mean Corpuscular Hemoglobin 31.4 pg (27.0-31.0); Mean Corpuscular Volume 92.2 fL (78.0-98.0); Mean Platelet Volume 8.6 fL (7.4-10.4); Platelet Count 199 thou/uL (130-400); RBC Distribution Width 13.4 % (11.5-14.5); Red Blood Cell (RBC) Count 5.45 mill/uL (4.70-6.10); White Blood Cell (WBC) Count 8.7 thou/uL (4.8-10.8)
[2018-05-15 01:17] LABS: INR-International Normal Ratio 1.1; PTT 28.2 SEC (22.9-36.1); Prothrombin Time 14.1 SEC (12.0-14.7)
[2018-05-15 01:32] LABS: ALT (SGPT) 27 U/L (8-55); AST (SGOT) 20 U/L (5-34); Alcohol 268 mg/dL (Less than 10); Alkaline Phosphatase 111 U/L (40-150); Anion Gap 17 mmol/L (10-20); BUN (Urea Nitrogen) 13 mg/dL (8.4-25.7); Bilirubin, Total 0.4 mg/dL (0.2-1.2); Calc. Creatinine Clearance 0 mL/min (70-130); Calcium 8.4 mg/dL (7.8-10.44); Carbon Dioxide 18 mmol/L (23-31); Chloride 103 mmol/L (98-107); Estimated GFR-MDRD 61; Globulin 3.2 g/dL (2.4-3.5); Glucose 126 mg/dL (80-115); Potassium 3.5 mmol/L (3.5-5.1); Protein, Total 7.2 g/dL (5.8-8.1); Sodium 134 mmol/L (136-145)
--- NOTE | 2018-05-15 11:56 | CT ---
PRELIMINARY REPORT/[facility]/EMERGENCY AFTER HOURS PROCEDURE: EXAM: CT Head Without Contrast EXAM DATE/TIME: 05/15/2018 1:11 AM CLINICAL HISTORY: 67 years old, male; Injury or trauma; Fall; Initial encounter; Abrasion; Not specified; Patient HX: E r 11; Ems reports PT has been drinking ETOH all night, a&ox4, helped out of bar and had near syncopal episode, ems unsure if PT actually "passed out" or not. PT denies loc. TECHNIQUE: Axial computed tomography images of the head/brain without contrast. COMPARISON: No relevant prior studies available. FINDINGS: Brain: No evidence of acute intracranial hemorrhage, extraxial fluid or midline shift. Cerebellum atr ophic; otherwise, posterior fossa structures within normal limits. Ventricles: Mild prominence of the cerebral sulci and ventricles. Bones/joints: Unremarkable. No acute fracture. Sinuses: Visualized sinuses are unremarkable. No acute sinusitis. Mastoid air cells: Mild bilateral mastoid fluid. Soft tissues: Unremarkable. IMPRESSION: 1. No evidence of acute intracranial hemorrhage, extraxial fluid or midline shift. 2. Mild cerebral atrophy. 3. Mild bilateral mastoid fluid. Thank you for allowing us to participate in the care of your patient. Dictated and Authenticated by: Mina Muller MD 05/15/2018 1:47 AM Central Time ([place] & [place]) FINAL REPORT EMERGENCY AFTER HOURS BRAIN CT SCAN WITHOUT IV CONTRAST: Date: 05/15/18 Time: 0112 hours FINDINGS/IMPRESSION: Mild sinus mucosal congestion. Mild atrophy and chronic white matter ischemic changes. No mass or ble ed, or other acute process. Report in agreement with preliminary report given on-call by Becca. POS: KARINE
--- NOTE | 2018-05-15 11:58 | CT ---
PRELIMINARY REPORT/[facility]/EMERGENCY AFTER HOURS PROCEDURE: EXAM: CT Cervical Spine Without Contrast EXAM DATE/TIME: 05/15/2018 1:09 AM CLINICAL HISTORY: 67 years old, male; Injury or trauma; Fall; Initial encounter; Abrasion; Patient HX: Er 11; Ems repor ts PT has been drinking ETOH all night, a&ox4, helped out of bar and had near syncopal episode, ems unsure if PT actually "passed out" or not. PT denies loc. TECHNIQUE: Axial computed tomography images of the cervical spine without intravenous contrast. Coronal and sagi ttal reformatted images were created and reviewed. COMPARISON: No relevant prior studies available. FINDINGS: Vertebrae: No evidence of acute fracture. Multilevel anterior osteophytosis. Mild-moderate narrowing, sclerosis and posterior uncovertebral osteophyte formation particularly at C5-6, C6-7 levels consist ent with cervical spondylosis. Multilevel bilateral facet sclerosis. Cervical spine is anatomically a ligned with minimal leftward spinal curvature. Discs/Spinal canal/Neural foramina: No spinal stenosis. No neural foraminal narrowing. Soft tissues: Unremarkable. Lungs: Lung apices are normal. IMPRESSION: 1. No evidence of acute fracture. 2. Multilevel cervical spondylosis and facet osteoarthrosis as described above consistent with chroni c degenerative changes. 3. Minimal leftward cervical spine curvature - possibly normal for patient, positional or underlying muscle spasm. Thank you for allowing us to participate in the care of your patient. Dictated and Authenticated by: Mina Muller MD 05/15/2018 1:47 AM Central Time ([place] & [place]) FINAL REPORT EMERGENCY AFTER HOURS CERVICAL SPINE CT SCAN WITHOUT IV CONTRAST: Date: 05/15/18 Time: 0110 hours FINDINGS/IMPRESSION: No acute fracture or facet dislocation. Spondylosis, particularly at C5-C6 and C6-C7. Partial opacifi cations of both mastoids. Bilateral carotid artery vascular calcifications. Report in agreement with preliminary report given on-call by Becca. POS: KARINE
== END 2018-05-15 02:35 | disposition home or self-care (01) ==
LOC: ERS 00:36
DX: S00.31XA Abrasion of nose, initial encounter (principal); F10.129 Alcohol abuse with intoxication, unspecified; J44.9 Chronic obstructive pulmonary disease, unspecified; I25.10 Atherosclerotic heart disease of native coronary artery without angina pectoris; E78.5 Hyperlipidemia, unspecified; I25.2 Old myocardial infarction; I10 Essential (primary) hypertension; F32.9 Major depressive disorder, single episode, unspecified; Z87.891 Personal history of nicotine dependence; Z79.899 Other long term (current) drug therapy; Z79.82 Long term (current) use of aspirin; Y90.8 Blood alcohol level of 240 mg/100 ml or more; W19.XXXA Unspecified fall, initial encounter
CPT/HCPCS: 36415; 70450; 72125; 80053; 80307; 85025; 85610; 85730; 93005

== ENCOUNTER 2019-01-10 00:16 | Inpatient (IN) | payer MEDICARE, BC ==
[2019-01-10] MEDS ORDERED: Succinylcholine Chloride 20 MG/ML 10 ml SYRINGE FS ONE (00:22)
[2019-01-10] MEDS ORDERED: Nitroglycerin 0.4 MG TAB 1 EACH ONE (00:27)
[2019-01-10] MEDS ORDERED: Lorazepam 2 MG/ML VIAL ONE (00:28)
[2019-01-10 00:49] LABS: #Basophils 0.1 thou/uL (0.0-0.2); #Eosinphils 0.1 thou/uL (0.0-0.7); #Lymphocytes 3.7 thou/uL (1.20-3.40); #Monocytes 1.5 thou/uL (0.11-0.59); #Neutrophils 9.5 thou/uL (1.40-6.50); %Basophils 0.4 % (0.0-1.0); %Eosinophils 0.8 % (0.0-10.0); %Lymphocytes 25.2 % (21.0-51.0); %Monocytes 9.8 % (0.0-10.0); %Neutrophils 63.8 % (42.0-75.0); Hemoglobin 17.3 g/dL (14.0-18.0); Mean Corpuscular HGB CONC 34.3 g/dL (32.0-36.0); Mean Corpuscular Hemoglobin 31.8 pg (27.0-31.0); Mean Corpuscular Volume 92.6 fL (78.0-98.0); Mean Platelet Volume 8.3 fL (7.4-10.4); Platelet Count 219 thou/uL (130-400); RBC Distribution Width 12.7 % (11.5-14.5); Red Blood Cell (RBC) Count 5.44 mill/uL (4.70-6.10); White Blood Cell (WBC) Count 14.9 thou/uL (4.8-10.8)
[2019-01-10 01:29] LABS: Actual Bicarbonate (HCO3a) 22.2 mEq/L (22-28); Analyzer IN Cardio ER; Base Excess (BEa) -1.9 mEq/L (-2.0 to +3.0); CO2 Tension 36.1 mmHg (35.0-45.0); Calcium, Ionized 1.13 mmol/L (1.12-1.30); Carboxyhemoglobin (COHb) 4.5 gm% (0.0-3.0); Hemoglobin (Hb) 16.5 g/dL (14.0-18.0); Potassium - ABG Lab 3.88 mmol/L (3.70-5.30); pH, Arterial 7.41 (7.35-7.45)
[2019-01-10 01:43] LABS: CKMB 2.1 ng/mL (0-6.6)
[2019-01-10 01:49] LABS: ALT (SGPT) 43 U/L (8-55); AST (SGOT) 30 U/L (5-34); Albumin 4.1 g/dL (3.4-4.8); Alkaline Phosphatase 141 U/L (40-110); Anion Gap 20 mmol/L (10-20); BUN (Urea Nitrogen) 14 mg/dL (8.4-25.7); Bilirubin, Total 0.6 mg/dL (0.2-1.2); Calc. Creatinine Clearance 0 mL/min (70-130); Calcium 8.8 mg/dL (7.8-10.44); Carbon Dioxide 16 mmol/L (23-31); Chloride 107 mmol/L (98-107); Estimated GFR-MDRD 47; Globulin 3.5 g/dL (2.4-3.5); Glucose 173 mg/dL (80-115); Potassium 4.3 mmol/L (3.5-5.1); Protein, Total 7.6 g/dL (5.8-8.1); Sodium 139 mmol/L (136-145)
[2019-01-10] MEDS ORDERED: Azithromycin 500 MG VIAL ONE (01:50)
[2019-01-10] MEDS ORDERED: cefTRIAXone\\ROCEPHIN 2 GM VIAL ONE (01:51)
--- NOTE | 2019-01-10 02:20 | PDOC.FPRHP ---
Addendum entered and electronically signed by Clover Alonzo MD 01/10/19 04 :09: Lovenox dose is prophylactic. Original Note: - History of Present Illness Chief Complaint: SOB History of Present Illness: Pt presents for waking up from his sleep w/ SOB and difficulty breathing. Says he went to bed fine and woke up with this issue. + cough. No sputum but sounds wet. Also complained of some chest pain like "his heart was going to give out." Denies feeling palpitations. Denies fevers. Denies having history of a-fib. Takes only aspirin 81 for anticoagulation. Has pacemaker or defibrillator in place. ED Course: Given nitro, ativan for feeling anxious, duoneb, ceftriaxone, azithromycin - Allergies/Adverse Reactions Allergies Allergy/AdvReac Type Severity Reaction Status Date / Time No Known Allergies Allergy Verified 03/09/18 16:44 - Home Medications Medication Instructions Recorded Confirmed Type Atorvastatin Calcium [Lipitor] 40 mg PO HS #0 tab 03/09/15 01/10/19 Rx Aspirin [Ecotrin Low Strength] 81 mg PO DAILY 06/29/17 01/10/19 History Furosemide [Lasix] 40 mg PO DAILY 06/29/17 01/10/19 History Metoprolol Succinate [Toprol XL] 50 mg PO DAILY 06/29/17 01/10/19 History Sacubitril/Valsartan 49/51 1 tab PO DAILY 06/29/17 01/10/19 History [Entresto 49 mg-51 mg Tablet] Albuterol Sulfate [Proair HFA] 2 puff INH Q4HR PRN 01/10/19 01/10/19 History Umeclidinium [place] [Incruse 1 inh IH DAILY 01/10/19 01/10/19 History Ellipta] - History PMHx: CHF, CAD, COPD, HTN, lesions on L ear that were supposed to be removed today and worrisome for skin cancer. PSHx: CABGx4 2011, pacemaker, hernia repair as a child FHx: head, neck, lung cancer Social: Still smokes 1.5 ppd, has smoked for over 50 years. Drinks alcohol occasionally - Review of Systems General: denies: fever/chills, weight/appetite/sleep changes ENT: denies: nasal congestion Respiratory: reports: cough, congestion, shortness of breath Cardiovascular: reports: chest pain. denies: palpitation, edema Gastrointestinal: denies: nausea, vomiting, diarrhea, abdominal pain Genitourinary: denies: dysuria Skin: denies: rashes Musculoskeletal: denies: pain Neurological: denies: weakness Psychological: reports: depression (has history of depression). denies: anxiety - Vital signs BP: 184/121, Pulse: 130, Resp: 35, O2 sat: 94 on Bipap, Time: 01/10/2019 00:49. - Physical Exam Constitutional: NAD, awake, alert and oriented HEENT: normocephalic and atraumatic, no scleral icterus, other (has no teeth, somewhat hard of hearing) Neck: trachea midline, no LAD, no thyromegaly Heart: normal S1/S2 (irregular rhythm and tachycardic), no murmurs/rubs/gallops -Lungs: bibasilar crackles and some expiratory wheezing Abdomen: soft, non-tender, bowel sounds present, other (large abdomen w/ positive fluid wave.) Musculoskeletal: normal structure, normal tone Neurological: no focal deficit Skin: no rash/lesions Heme/Lymphatic: no unusual bruising or bleeding Psychiatric: normal mood and affect, intact recent and remote memory FMR H&P: Results - Labs Result Diagrams: 01/10/19 03:30 01/10/19 03:30 Lab results: WBC 14.9 thou/uL (4.8-10.8) H 01/10/19 00:39 Hgb 17.3 g/dL (14.0-18.0) 01/10/19 00:39 Hct 50.4 % (42.0-52.0) 01/10/19 00:39 MCV 92.6 fL (78.0-98.0) 01/10/19 00:39 Plt Count 219 thou/uL (130-400) 01/10/19 00:39 Neutrophils % 63.8 % (42.0-75.0) 01/10/19 00:39 Sodium 139 mmol/L (136-145) 01/10/19 00:38 Potassium 4.3 mmol/L (3.5-5.1) 01/10/19 00:38 Chloride 107 mmol/L (98-107) 01/10/19 00:38 Carbon Dioxide 16 mmol/L (23-31) L 01/10/19 00:38 BUN 14 mg/dL (8.4-25.7) 01/10/19 00:38 Creatinine 1.48 mg/dL (0.7-1.3) H 11 00:38 Glucose 173 mg/dL (80-115) H 01/10/19 00:38 Lactic Acid 4.7 mmol/L (0.5-2.2) H* 01/10/19 00:39 Calcium 8.8 mg/dL (7.8-10.44) 01/10/19 00:38 Total Bilirubin 0.6 mg/dL (0.2-1.2) 01/10/19 00:38 AST 30 U/L (5-34) 01/10/19 00:38 ALT 43 U/L (8-55) 01/10/19 00:38 Alkaline Phosphatase 141 U/L (40-110) H 01/10/19 00:38 CK-MB (CK-2) 2.1 ng/mL (0-6.6) 01/10/19 00:38 B-Natriuretic Peptide 2094.3 pg/mL (0-100) H 01/10/19 00:38 Serum Total Protein 7.6 g/dL (5.8-8.1) 01/10/19 00:38 Albumin 4.1 g/dL (3.4-4.8) 01/10/19 00:38 - EKG Interpretation EKG: a-fib w/ RVR - Radiology Interpretation Chest x-ray Status: image reviewed by me Additional comment: vascular congestion bilaterally, cardiomegaly CT scan - chest Status: pending FMR H&P: A/P - Problem List (1) HTN (hypertension) Current Visit: Yes Status: Acute Code(s): I10 - ESSENTIAL (PRIMARY) HYPERTENSION (2) Acute respiratory failure with hypoxia Current Visit: Yes Status: Acute Code(s): J96.01 - ACUTE RESPIRATORY FAILURE WITH HYPOXIA (3) CHF exacerbation Current Visit: Yes Status: Acute Code(s): I50.9 - HEART FAILURE, UNSPECIFIED (4) Acute on chronic systolic (congestive) heart failure Current Visit: No Status: Acute Code(s): I50.23 - ACUTE ON CHRONIC SYSTOLIC (CONGESTIVE) HEART FAILURE (5) COPD (chronic obstructive pulmonary disease) Current Visit: No Status: Acute Qualifiers: COPD type: emphysema (6) CKD (chronic kidney disease) stage 3, GFR 30-59 ml/min Current Visit: No Status: Chronic Code(s): N18.3 - CHRONIC KIDNEY DISEASE, STAGE 3 (MODERATE) (7) Coronary artery disease Current Visit: No Status: Chronic Code(s): I25.10 - ATHSCL HEART DISEASE OF [place] CORONARY ARTERY W/O ANG PCTRS Qualifiers: Coronary Disease-Associated Artery/Lesion type: bypass graft [place] vs. transplanted heart: [place] heart Associated angina: angina presence unspecified Qualified Code(s): I25.810 - Atherosclerosis of coronary artery bypass graft(s) without angina pectoris (8) Peripheral vascular disease Current Visit: No Status: Chronic Code(s): I73.9 - PERIPHERAL VASCULAR DISEASE, UNSPECIFIED (9) Tobacco abuse Current Visit: No Status: Chronic Code(s): Z72.0 - TOBACCO USE - Plan 68-yo M admitted for: Acute hypoxic respiratory failure - admit to IMCU for respiratory distress. Pt did require CPAP in the ED - Continue O2 support - Likely 2/2 to CHF exacerbation - Pt also met SIRS criteria: procal pending. Unsure of source and may pursue this further. - Will get repeat labs daily CHF exacerbation CAD Peripheral vascular disease HTN - last ECHO over a year ago per pt - will repeat ECHO today - Lasix 40 IV mg now and at 1400 today - Continue home medications: aspirin, statin, and BP meds - strict I/Os A-fib, w/ RVR on arrival and now normal rate - Continue home heart medications - Will anticoagulate w/ LVX - Pt denies knowledge of a-fib so this may be new or paroxysmal COPD - schedule duonebs - solumedrol given, begin prednisone tomorrow - received antibiotics in ED Elevated troponin - trend, anticoagulate as needed. May need to switch to therapeutic LVX. - Repeat EKG as needed. - Consult cardiology in AM CKD3 - aware, monitor, avoid kidney offending meds Tobacco abuse - counseled on cessation Depression - continue home meds, if takes any Code : FULL VTE ppx: LVX GI ppx: none Fluids: none Phylicia Alonzo MD PGY1 Disposition/LOS: Admit to IMCU. LOS > 48H FMR H&P: Upper Level - Plan Date/Time: 01/10/19218 68 yo male presented with shortness of breath this morning. Hx of a CABG, CHF, COPD. HR: 104, 100% 2L NC, RR 24 BP: 170s/ PE: tachycardic, irregular 1+ pitting edema to knees decreased breath sounds bilaterally abdomen soft, obese a&ox3 Labs: wbc14 lactic acid 4.7 troponin .110 pH 7.3, pO2 40, pCO2 36s, HCO3 22 EKG: afib rvr CXR: pulmonary vascular congestion bilaterally CTA: no evidence of PE, bilateral pleural effusions 68 yo M here with shortness of breath admitted for: 1. Acute Hypoxic Respiratory failure 2/2 acute CHF exacerbation - Will repeat echo - weaned off bipap, on NC now - Continue lasix diuresis - Fluid restrict, daily weights - Home meds 2. Acute on chronic CHF exacerbation- -diurese -repeat echo -daily weights, monitor I/Os -daily BMP 3. Afib with RVR- -call cards in the am, sees Sarah -tachycardic 110s currently -metoprolol 5mg IV prn 4. Sirs- -unknown source -possible COPD exacerbation, with underlying bacterial etiology -leukocytosis, tachycardic, tachypnic 5. COPD, mild exacerbation -125 solumedrol now - Duonebs PRN - gave abx in the ER - procal pending - Will start steroids if inadequate improvement with diuresis 6. Indeterminate troponin- -trend -suspect demand ischemia See [facility] internship note for chronic conditions. Marcell Huertas MD, PGY-3 Addendum - Attending - Attending Attestation Date/Time: 01/10/19 [id number] I personally evaluated the patient and discussed the management with Dr. Alonzo /Kiya. I agree with the History, Examination, Assessment and Plan documented above with any addition or exceptions noted below. Please see my dictated addendum for additional detail. Document number [id number].
[2019-01-10 02:36] LABS: O2 Tension (PaO2) 49.7 mmHg (> 80.0); Puncture Site LBA
[2019-01-10 02:37] LABS: ALV-art Gradient 119.075 (0-20)
[2019-01-10] MEDS ORDERED: Ondansetron PF 4 MG/2 ML Vial IVP PRN (03:08)
[2019-01-10] MEDS ORDERED: Acetaminophen 325 MG TAB PO PRN (03:08)
[2019-01-10] MEDS ORDERED: Ondansetron ODT 4 MG TAB PO PRN (03:08)
[2019-01-10] MEDS ORDERED: Aspirin 325 MG TAB ONE (03:16)
[2019-01-10] MEDS ORDERED: Bacteriostatic Water 30 ML VIAL FS PRN (03:28)
[2019-01-10] MEDS ORDERED: methylPREDNISolone Sod Succ/PF 125 MG/2 ML VIAL IVP SCH (03:30)
[2019-01-10] MEDS ORDERED: Furosemide 40 MG/4 ML VIAL SLOW IVP SCH ×3 (03:30→14:00)
[2019-01-10 04:03] LABS: #Basophils 0.1 thou/uL (0.0-0.2); #Lymphocytes 1.1 thou/uL (1.20-3.40); #Monocytes 1.2 thou/uL (0.11-0.59); #Neutrophils 13.1 thou/uL (1.40-6.50); %Basophils 0.3 % (0.0-1.0); %Eosinophils 0.3 % (0.0-10.0); %Monocytes 7.5 % (0.0-10.0); %Neutrophils 84.9 % (42.0-75.0); Hemoglobin 16.5 g/dL (14.0-18.0); Mean Corpuscular HGB CONC 34.1 g/dL (32.0-36.0); Mean Corpuscular Hemoglobin 31.3 pg (27.0-31.0); Mean Corpuscular Volume 91.9 fL (78.0-98.0); Mean Platelet Volume 9.2 fL (7.4-10.4); Platelet Count 187 thou/uL (130-400); RBC Distribution Width 12.7 % (11.5-14.5); Red Blood Cell (RBC) Count 5.27 mill/uL (4.70-6.10); White Blood Cell (WBC) Count 15.4 thou/uL (4.8-10.8)
[2019-01-10 04:06] LABS: ALT (SGPT) 51 U/L (8-55); AST (SGOT) 34 U/L (5-34); Albumin 3.7 g/dL (3.4-4.8); Alkaline Phosphatase 129 U/L (40-110); Anion Gap 15 mmol/L (10-20); BUN (Urea Nitrogen) 15 mg/dL (8.4-25.7); Bilirubin, Total 0.6 mg/dL (0.2-1.2); Calc. Creatinine Clearance 0 mL/min (70-130); Calcium 8.7 mg/dL (7.8-10.44); Carbon Dioxide 21 mmol/L (23-31); Chloride 107 mmol/L (98-107); Estimated GFR-MDRD 51; Globulin 3.1 g/dL (2.4-3.5); Glucose 170 mg/dL (80-115); Potassium 4.3 mmol/L (3.5-5.1); Protein, Total 6.8 g/dL (5.8-8.1); Sodium 139 mmol/L (136-145)
[2019-01-10 04:07] LABS: Lactic Acid 2.2 mmol/L (0.5-2.2)
[2019-01-10 04:15] VITALS: BMI 33.7
[2019-01-10 04:50] LABS: Phosphorus 3.5 mg/dL (2.3-4.7)
[2019-01-10 05:10] LABS: Hemoglobin A1c 5.4 % (4.0-6.0)
--- NOTE | 2019-01-10 05:33 | HP ---
CHIEF COMPLAINT: Shortness of breath. HISTORY OF PRESENT ILLNESS: I have discussed and reviewed all documentation on this patient with Drs. Alonzo and Kiya. I agree with all documentation and patient care plan unless otherwise stated in the attestation. SUMMARY: Mr. Villafuerte is a pleasant 68-year-old with past medical history of unknown heart failure with reduced ejection fraction, COPD, CAD status post three vessel CABG and status post pacemaker and automated defibrillator placement. He presents with a 1 day history of shortness of breath that progressively worsened on the evening of his admission. The patient's present at bedside provided additional history. He states that the patient had been complaining of shortness of breath throughout the day and had been using his albuterol rescue inhaler multiple times. He states the patient went to bed between 2200 and 2300 hours on the evening of the admission. The patient states that when he lays flat in the bed, he becomes acutely short of breath, prompting him to call EMS to take him to the emergency room. ER COURSE: While in the ER, the patient underwent routine laboratory evaluation and was briefly on CPAP for respiratory support. His oxygenation improved with this and he was able to be weaned off CPAP in the ER. His initial blood pressure was 218 /51. He received aspirin 325 mg, Rocephin 2 g, azithromycin 500 mg, DuoNeb x1, Ativan 1 mg, and nitroglycerin 0.4 mg sublingual. Labs were ordered. Chest x-ray and CT of the chest were obtained as well as an EKG. At time of my examination, patient was lying comfortably in bed with minimal respiratory distress, maintaining his oxygen saturation above 95% on 3 L nasal cannula. He was speaking in full and complete sentences. Please see computer science intern note for past medical, surgical, social and family history. PHYSICAL EXAMINATION: VITAL SIGNS: Blood pressure 148/77, pulse was between 100 and 110 during my exam, respiratory rate 28, oxygen saturation 100% percent on 3 L. Weight 100 kg. GENERAL: Mild respiratory distress, alert and oriented x4. Speaking in full sentences, appropriately interactive. ENT: Dry mucous membranes. CARDIOVASCULAR: Distant heart sounds, tachycardic rate, regular rhythm. Pulses full and equal. LUNGS: Anex-dh-cykxfjwg respiratory distress. Crackles heard in both lung bases. Faint wheezing heard throughout. Overall poor air movement throughout all lung yang. Prolonged expiratory phase. PERTINENT LABORATORY FINDINGS: Creatinine 1.48 which is near the patient's baseline. Lactic acid 4.7. Troponin 0.110. BNP 2094.3. ABG: pH 7.41, pCO2 36, pO2 49.7. IMAGIN. EKG reviewed by me. Atrial fibrillation with rapid ventricular response at 0035 am. Rate 149, normal QTc, normal intervals, no obvious ST elevations. 2. Chest x-ray reviewed by me. Diffuse pulmonary vascular congestion bilaterally, pleural effusions. Single lead pacemaker noted. Sternotomy wires present. 3. CTA of the chest is reviewed by me. Official read pending at this time. No obvious filling defects. Bilateral pleural effusions noted. Calcifications in the aorta noted. Otherwise unremarkable. ASSESSMENT AND PLAN: Mr. Villafuerte is a 68-year-old male with past history of heart failure with reduced ejection fraction, coronary artery disease status post three vessel coronary artery bypass grafting, pacemaker placement. He presents with 1 -day history of shortness of breath. He states that the nebulizer treatments have helped him significantly in the ER and is currently no longer requiring noninvasive ventilation. PLAN: 1. Acute hypoxic respiratory failure secondary to CHF exacerbation versus COPD exacerbation. The patient no longer requiring noninvasive ventilation. We will place in the IMCU in case he requires this again during the next 24 hours. 2. Heart failure with reduced ejection fraction exacerbation. The patient states he has not seen his gas cutter in almost a year. We will repeat transthoracic echocardiogram at this time. We will contact Dr. Smith in the morning for further information regarding most recent echocardiogram in the office. Schedule IV Lasix b.i.d. Daily weights. Strict I and Os. We will resume home heart failure medications. If his ejection fraction remains less than 35%, would potentially need AICD placement in addition to pacemaker placement, but will defer that decision to the Cardiology. 3. COPD exacerbation. Scheduled DuoNebs. We will give IV Solu-Medrol 125 mg and then start on 40 mg p.o. prednisone daily for 5 total days of steroids P.r.n. albuterol available as needed. 4. Presumed new onset atrial fibrillation. Review of prior EKGs does not show history of atrial fibrillation. However, given the patient's extensive cardiac history, it would not be unexpected that he has paroxysmal atrial fibrillation. The patient says he underwent pacemaker interrogation recently. We will attempt to obtain records form his gas cutter and discuss further. If the patient is having paroxysmal atrial fibrillation. We will need to discuss chronic anticoagulation with the patient. Continue telemetry monitoring. 5. SIRS. The patient actually met sepsis criteria upon admission. However sepsis criteria was met with elevated white count, tachycardia and tachypnea. Abnormal vital signs likely due to COPD/CHF exacerbation. He has already been covered with IV antibiotics. Procalcitonin pending at this time to determine the need of additional antibiotic therapy. Blood cultures have been ordered. We will trend lactic acid. Disposition and estimated length of stay, inpatient IMCU greater than 2 midnights. Job ID: [id number] MTDD
[2019-01-10] MEDS ORDERED: FLU VACC TS2019-20(65YR UP)/PF 180 MCG/0.5 ML SYRINGE IM ONE (06:15)
--- NOTE | 2019-01-10 07:53 | RAD ---
EXAM: Single view of the chest HISTORY: Shortness of breath COMPARISON: 03/09/2018 FINDINGS: Single view of the chest shows an enlarged but stable cardiomediastinal silhouette. The pa tient is status post sternotomy. The pacemaker is unchanged in position. Chronic interstitial markings are stable. There is no evidence of consolidation, mass, or pleural effusion. The bones are unremarkable. IMPRESSION: Cardiomegaly without evidence of acute cardiopulmonary disease
--- NOTE | 2019-01-10 08:03 | CT ---
PRELIMINARY REPORT/[facility]/EMERGENCY AFTER HOURS PROCEDURE: PROCEDURE INFORMATION: Exam: CT Angiography Chest With Contrast Exam date and time: 01/10/2019 2:12 AM Clinical history: 68 years old, male; Shortness of breath; Patient HX: M68 presents to ED in respirat ory distress. reports PT went to bed feeling ok, some slight difficulty breathing. Hx- chf, triple bypass with defib, hbp, copd. TECHNIQUE: Imaging protocol: Computed tomographic angiography of the chest with intravenous contrast. 3D rendering: MIP reconstructed images were created and reviewed. COMPARISON: No relevant prior studies available. FINDINGS: Tubes, catheters and devices: A pacemaker device is present, and its leads are in appropriate positio n. Pulmonary arteries: There is no evidence of peripheral filling defects within the pulmonary arterial circulation to suggest pulmonary embolism. Aorta: The aorta demonstrates mild atherosclerotic calcification. No aortic aneurysm. No aortic disse ction. Lungs: There are patchy predominantly RIGHT lung air space opacities suspicious for infection. Interstitial edema is also noted. Pleural space: There are small bilateral pleural effusions. Heart: Unremarkable. No cardiomegaly. No pericardial effusion. Adrenals: There is a focal hypodense mass in the left adrenal gland, consistent in appearance and den sity with a benign adrenal adenoma. Lymph nodes: There is a mildly prominent subcarinal lymph node measuring up to 16 mm in short axis. Bones/joints: There are sternal wires consistent with previous sternotomy incision. The thoracic spin e demonstrates moderate degenerative changes at multiple levels. Soft tissues: Unremarkable. IMPRESSION: 1. There is no CT evidence of acute pulmonary embolism. 2. Patchy mostly RIGHT sided air space opacities are noted suspicious for pneumonia. Possibly superim posed mild pulmonary edema and small bilateral pleural effusions also noted. Thank you for allowing us to participate in the care of your patient. Dictated and Authenticated by: Howard Grant MD 01/10/2019 2:41 AM Central Time ([place] & [place]) FINAL REPORT EMERGENT AFTER HOURS CTA OF THE CHEST WITH CONTRAST: FINDINGS/IMPRESSION: I agree with the findings and impression given in the preliminary report per [facility] physician. 1. No evidence of pulmonary thromboembolism. 2. Small bilateral pleural effusions with adjacent atelectasis. 3. Subtle infiltrates in the right lung. POS: [facility]
[2019-01-10 08:06] LABS: Troponin I 0.458 ng/mL (< 0.028)
[2019-01-10] MEDS ORDERED: Aspirin Chewable 81 MG TAB PO SCH (09:00)
[2019-01-10] MEDS ORDERED: Sacubitril 49 MG/Valsartan 51 MG TABLET PO SCH (09:00)
[2019-01-10] MEDS ORDERED: Enoxaparin Sodium 40 MG/0.4 ML SYRINGE SC SCH (09:00)
[2019-01-10] MEDS: Aspirin 81 mg Enteric Coated Tablet PO SCH (09:38)
[2019-01-10] MEDS ORDERED: Iopamidol-370 76% 500 ML 1 ML ONE (13:15)
--- NOTE | 2019-01-10 14:42 | CON ---
DATE OF CONSULTATION: HISTORY: Pedro Villafuerte Jr is a 68-year-old white male, who has been followed by Dr. Smith in the past. In March 2011, he underwent CABG x3 with VALERIO to the LAD and saphenous vein graft to the obtuse marginal and PDA. Then in March 2015, he had a single-chamber ICD placed. He has had problems with congestive heart failure, but has been somewhat noncompliant with his followups. He was last seen by Dr. Smith in the office in May 2017, Echocardiogram at that time revealed ejection fraction of 15% to 20%. He now is admitted with increasing shortness of breath over the last 1 to 2 days. However, he also states that he has had exertional dyspnea over the last 2 weeks and episodes of PND. To me, he denies any chest discomfort. He came to the emergency room, was placed on CPAP, given intravenous diuretics as well as Rocephin and azithromycin. At the present time, he denies any dyspnea and is comfortable without any oxygen on. PAST MEDICAL HISTORY: Coronary artery disease, peripheral vascular disease, COPD, hypertension, ischemic cardiomyopathy. PAST SURGICAL HISTORY: CABG x3. ICD placement, single-chamber. Hernia repair. MEDICATIONS: 1. Albuterol 2 puffs q.4 hours p.r.n. 2. Aspirin 81 daily. 3. Atorvastatin 40 at bedtime. 4. Furosemide 40 mg daily. 5. Metoprolol 50 XL daily. 6. Entresto 49/51 daily. SOCIAL HISTORY: Still smokes 1-1/2 packs per day. He occasionally drinks alcohol. REVIEW OF SYSTEMS: Otherwise unremarkable. PHYSICAL EXAMINATION: VITAL SIGNS: Blood pressure 113/47, pulse of 79. HEENT: PERRL. NECK: Supple. CHEST: Reveals distant breath sounds. CARDIOVASCULAR: S1, S2 normal without any S3, S4, or murmurs. ABDOMEN: Normal bowel sounds without tenderness. The abdomen is obese. EXTREMITIES: Trace pretibial edema of the left leg. No edema of the right leg. NEUROLOGIC: Grossly intact. SKIN: Warm and dry. LABORATORY DATA: EKG on presentation revealed atrial fibrillation with rapid ventricular response of 149 per minute. He apparently spontaneously converted to sinus rhythm. White count 15,400, hemoglobin 16.5, hematocrit 48.5, platelets 187,000. D-dimer 1.66. Sodium 139, potassium 4.3, chloride 107, carbon dioxide 21, BUN 15, creatinine 1.40. Troponin I 0.458. TSH is normal. Magnesium is normal. Lactic acid 4.2. BNP 2094.3. Chest x-ray reveals cardiomegaly with single-chamber ICD in place. Chest CTA revealed no evidence of pulmonary embolism. There is patchy infiltrate in the right, suspicious for pneumonia. IMPRESSION: 1. Acute respiratory failure with possible finding of pneumonia on chest CT as well as severe left ventricular dysfunction in the past. 2. Non-ST elevation myocardial infarction, type 2. 3. Ischemic cardiomyopathy with last ejection fraction of 15% to 20%. 4. Status post coronary artery bypass grafting x3. 5. Chronic obstructive pulmonary disease exacerbation. 6. Patient continues to smoke. 7. Brief episode of atrial fibrillation, which presumably is new. 8. Hypercholesterolemia. 9. Acute kidney injury. PLAN: With the episode of atrial fibrillation, I will place him on therapeutic doses of Lovenox. Echocardiogram has been ordered. He will continue to be diuresed and treated with IV antibiotics. We will follow the patient with you. Entresto will be changed to b.i.d., which is more physiological dosing rather than daily. Job ID: [id number]
[2019-01-10] MEDS: Atorvastatin Calcium 40 MG TAB PO SCH (20:28)
[2019-01-10] MEDS: cefTRIAXone\\ROCEPHIN 1 GM in Sodium Chloride 0.9% 100 ML IVPB SCH (20:28)
[2019-01-10] MEDS: Enoxaparin Sodium 100 MG/ML SYRINGE SC SCH (20:29)
--- NOTE | 2019-01-10 20:41 | CON ---
DATE OF CONSULTATION: 01/10/2019 HISTORY OF PRESENT ILLNESS: Pedro Villafuerte is a very pleasant gentleman, who felt pretty good when he woke up yesterday morning, and yesterday evening, started getting short of breath. He presented in the emergency room and found to have pulmonary edema on exam and x-ray. He has diuresed and says he feels back to normal now. When I evaluated him, he was on room air. He was treated with CPAP after he arrived at the hospital. PAST MEDICAL HISTORY: 1. Coronary artery disease with coronary artery bypass grafting in 2011. 2. History of single chamber defibrillator placement in 2015. 3. History of congestive heart failure in the past. He admits that he has not kept followup appointments with Dr. Smith, but he says because he was feeling fine. 4. In May 2017, echo showing an ejection fraction of 15% to 20%. 5. Reported history of COPD, although he says he has never seen a lung doctor. 6. History of hypertension. 7. History of herniorrhaphy in the past. MEDICATIONS: 1. He has albuterol at home. 2. Aspirin. 3. Atorvastatin. 4. Lasix. 5. Metoprolol. 6. Entresto. SOCIAL HISTORY: He is still smoking a pack and half a day. He occasionally drinks alcohol. FAMILY HISTORY: Not obtained. REVIEW OF SYSTEMS: 10 point review of systems completed, otherwise negative. PHYSICAL EXAMINATION: GENERAL: A very pleasant gentleman, in no distress. VITALS: Heart rate is 100, respiratory rate is 20, oximetry is 100% on room air , blood pressure 119/56. HEENT: Pupils are equal. Sclerae are anicteric. NECK: Supple. No lymphadenopathy. LUNGS: Clear. HEART: Regular rhythm. S1 and S2 are normal. ABDOMEN: Soft and nontender. EXTREMITIES: Without clubbing, cyanosis, or edema. LABORATORY DATA: White count 15.4, hemoglobin 16.5, platelets 187. Electrolytes were normal. Creatinine was 1.4. BNP was 2094. Chest x-ray showed pulmonary edema. IMPRESSION: 1. Congestive heart failure, dramatically improved. 2. Obesity, ? sleep apnea. 3. Vjpsx-ma-zdxnnlj kidney disease. 4. Ongoing tobacco. 5. History of coronary artery disease, bypass grafting in the past, placement of defibrillator, and severe reduction of left ventricular systolic function. Appears to be clinically improving. I will be happy to follow with Cardiology in the other physicians while he is in the intermediate care unit. He may be a candidate to transfer out in the morning. This is a 50 minute consult, with greater than 50% of time spent on unit coordinating care. Job ID: [id number] MTDD
[2019-01-11] MEDS: Furosemide 40 MG/4 ML VIAL SLOW IVP SCH ×2 (05:13→15:14)
--- NOTE | 2019-01-11 05:55 | PDOC.FM ---
- Subjective Subjective: Pt reports his breathing is much improved. He denies chest pain, SOB, or abdominal pain. He reports needing O2 overnight but states he is breathing fine now - Objective MAR Reviewed: Yes Vital Signs & Weight: Vital Signs (12 hours) Temp Pulse Resp Pulse Ox 01/11/19 04:00 97.9 F 01/10/19 23:58 98.3 F 01/10/19 20:00 98 01/10/19 19:54 98.6 F 01/10/19 18:40 100 20 100 Weight Weight 99.065 kg Most Recent Monitor Data Heart Rate from ECG 54 NIBP 133/63 NIBP BP-Mean 86 Respiration from ECG 13 SpO2 100 I&O: 01/09/19 01/10/19 01/11/19 06:59 06:59 06:59 Intake Total 16 1160 Output Total 925 800 Balance -909 360 Result Diagrams: 01/10/19 03:30 01/11/19 06:30 Phys Exam - Physical Examination Constitutional: NAD dry mm Respiratory: no wheezing, no rales improved crackles in bases bilaterally Cardiovascular: RRR, no significant murmur Gastrointestinal: soft, non-tender, no distention, positive bowel sounds Musculoskeletal: no edema, pulses present (slightly diminished) Neurological: non-focal, normal sensation, moves all 4 limbs Psychiatric: normal affect, A&O x 3 Skin: normal turgor, cap refill <2 seconds Dx/Plan (1) Acute respiratory failure with hypoxia Code(s): J96.01 - ACUTE RESPIRATORY FAILURE WITH HYPOXIA Status: Acute (2) CHF exacerbation Code(s): I50.9 - HEART FAILURE, UNSPECIFIED Status: Acute (3) HTN (hypertension) Code(s): I10 - ESSENTIAL (PRIMARY) HYPERTENSION Status: Acute (4) COPD (chronic obstructive pulmonary disease) Status: Acute Qualifiers: COPD type: emphysema (5) Coronary artery disease Code(s): I25.10 - ATHSCL HEART DISEASE OF [place] CORONARY ARTERY W/O ANG PCTRS Status: Chronic Qualifiers: Coronary Disease-Associated Artery/Lesion type: bypass graft [place] vs. transplanted heart: [place] heart Associated angina: angina presence unspecified Qualified Code(s): I25.810 - Atherosclerosis of coronary artery bypass graft(s) without angina pectoris (6) Peripheral vascular disease Code(s): I73.9 - PERIPHERAL VASCULAR DISEASE, UNSPECIFIED Status: Chronic - Plan Plan: This is a 68 yo male with a pmh of HTN, CAD, PVD, CKD3, tobacco abuse Acute hypoxic respiratory failure -Continue respiratory support as needed -Likely 2/2 CHF exacerbation, possible COPD/PNA contribution -IV lasix with plans to change to PO tomorrow pending clinical picture -Abx for the time being CHF exacerbation -As above -Pending Echo read -Strict I&Os/daily weights -Fluid restriction NSTEMI -Dr. Franco has been consulted Atrial fibrillation with RVR -Currently on therapeutic lovenox -Cardiology recommendations COPD -Scheduled duonebs and daily steroids CKD3 -Monitor Tobacco abuse Addendum - Attending - Attending Attestation Date/Time: 01/11/19 1227 I personally evaluated the patient and discussed the management with Dr. Gottlieb. I agree with the History, Examination, Assessment and Plan documented above with any addition or exceptions noted below. Looks markedly improved today. Possibly home pending discussion with cards.
[2019-01-11 07:06] LABS: Anion Gap 13 mmol/L (10-20); BUN (Urea Nitrogen) 24 mg/dL (8.4-25.7); Calc. Creatinine Clearance 69 mL/min (70-130); Calcium 8.6 mg/dL (7.8-10.44); Carbon Dioxide 25 mmol/L (23-31); Chloride 107 mmol/L (98-107); Estimated GFR-MDRD 49; Glucose 118 mg/dL (80-115); Sodium 141 mmol/L (136-145)
[2019-01-11] MEDS: Aspirin 81 mg Enteric Coated Tablet PO SCH (10:37)
[2019-01-11] MEDS: predniSONE 20 MG TAB PO SCH (10:37)
[2019-01-11] MEDS: Enoxaparin Sodium 100 MG/ML SYRINGE SC SCH ×2 (10:37→20:04)
[2019-01-11] MEDS: Azithromycin 250 MG TAB PO SCH (10:37)
--- NOTE | 2019-01-11 13:15 | PRG ---
DATE OF SERVICE: 01/11/2019 SUBJECTIVE: Pedro Villafuerte has no complaints. He wants to go home. We had a long discussion about smoking. He says he has done. His says she is throwing away all the ashtrays and all the cigarettes. OBJECTIVE: VITAL SIGNS: He is afebrile. Blood pressure 140/68, heart rate 70, and respiratory rate 20. LUNGS: Clear. HEART: Regular rhythm. ABDOMEN: Soft. LABORATORY DATA: His electrolytes today are normal. His creatinine is 1.45, it was 1.48 on admission. IMPRESSION: 1. Congestive heart failure. 2. Acute on chronic kidney disease. 3. Obesity with probable sleep apnea. Per my discussion with the , I recommended that he will see me in followup in the office and I will set him up for a sleep study. 4. ? chronic obstructive pulmonary disease. He has had no wheezing since he has been here and even though he is a heavy smoker, he may not have any chronic obstructive pulmonary disease. He has never had pulmonary function tests. This can be done at a later date. This is not a pressing issue at this time. We will sign off. Job ID: [id number]
[2019-01-11 16:30] VITALS: BP 125/70
--- NOTE | 2019-01-11 18:51 | PDOC.CPN ---
- Subjective Date: 01/11/19 Time: 18:49 Interval history: He looks a lot better. Pretty much back to his normal baseline. - Review of Systems General: denies: fever/chills, weight/appetite/sleep changes, night sweats, fatigue Respiratory: denies: cough, congestion, shortness of breath, exercise intolerance Cardiovascular: denies: chest pain, palpitation, edema, paroxysmal nocturnal dyspnea, orthopnea Gastrointestinal: denies: nausea, vomiting, diarrhea, constipation, abd pain, GI bleeding Musculoskeletal: denies: pain, tenderness, stiffness, swelling, arthritis/ arthralgias Neurological: denies: numbness, syncope, seizure, weakness - Objective Allergies/Adverse Reactions: Allergies Allergy/AdvReac Type Severity Reaction Status Date / Time No Known Allergies Allergy Verified 03/09/18 16:44 Visit Medications: Current Medications Acetaminophen (Tylenol) 650 mg PO Q4H PRN PRN Reason: Headache/Fever/Mild Pain (1-3) Albuterol/Ipratropium (Duoneb) 3 ml NEB Q2H PRN PRN Reason: SOB &/or Wheezing Albuterol/Ipratropium (Duoneb) 3 ml NEB [id number] [facility] Last Admin: 01/11/19 13:28 Dose: 3 ml Aspirin (Ecotrin) 81 mg PO DAILY [facility] Last Admin: 01/11/19 10:37 Dose: 81 mg Atorvastatin Calcium (Lipitor) 40 mg PO HS [facility] Last Admin: 01/10/19 20:28 Dose: 40 mg Azithromycin (Zithromax) 250 mg PO DAILY [facility] Stop: 01/14/19 09:01 Last Admin: 01/11/19 10:37 Dose: 250 mg Enoxaparin Sodium (Lovenox) 100 mg SC 0900,2100 [facility] Last Admin: 01/11/19 10:37 Dose: 100 mg Furosemide (Lasix) 40 mg SLOW IVP 0600,1400 [facility] Last Admin: 01/11/19 15:14 Dose: 40 mg Ceftriaxone Sodium 1 gm/ (Sodium Chloride) 100 mls @ 200 mls/hr IVPB Q24HR [facility] Last Admin: 01/10/19 20:28 Dose: 100 mls Metoprolol Succinate (Toprol Xl) 50 mg PO DAILY [facility] Last Admin: 01/11/19 10:39 Dose: 50 mg Ondansetron HCl (Zofran Odt) 4 mg PO Q6H PRN PRN Reason: Nausea/Vomiting Ondansetron HCl (Zofran) 4 mg IVP Q6H PRN PRN Reason: Nausea/Vomiting Prednisone (Prednisone) 40 mg PO QAM-WM [facility] Last Admin: 01/11/19 10:37 Dose: 40 mg Sacubitril/Valsartan (Entresto 24 Mg-26 Mg Tablet) 1 tab PO BID [facility] Last Admin: 01/11/19 10:38 Dose: 1 tab Sodium Chloride (Flush - Normal Saline) 10 ml IVF PRN PRN PRN Reason: Saline Flush Last Admin: 01/11/19 10:40 Dose: 10 ml Vital Signs & Weight: Vital Signs Temp Pulse Pulse Pulse Resp BP BP 01/11/19 15:37 97.8 F 01/11/19 14:08 67 125/70 144/78 H 01/11/19 13:28 75 17 01/11/19 11:06 97.0 F L 01/11/19 09:12 64 85 123/71 117/69 01/11/19 08:00 01/11/19 07:41 75 20 01/11/19 07:33 97.5 F L Pulse Ox Pulse Ox Pulse Ox 01/11/19 15:37 01/11/19 14:08 100 01/11/19 13:28 100 01/11/19 11:06 01/11/19 09:12 100 95 01/11/19 08:00 98 01/11/19 07:41 99 01/11/19 07:33 Weight 218 lb 6.4 oz - Physical Exam General: alert & oriented x3 HEENT: mucus membranes moist Neck: supple neck Cardiac: regular rate and rhythm, no murmur Lungs: clear to auscultation, no wheeze, rales, rhonchi Neuro: grossly intact Abdomen: active bowel sounds, soft, non-tender Extremities: no edema Skin: clear Musculoskeletal: no pain - Labs Result Diagrams: 01/10/19 03:30 01/11/19 06:30 Troponin/CKMB CK-MB (CK-2) 2.1 ng/mL (0-6.6) 01/10/19 00:38 Troponin I 0.458 ng/mL (< 0.028) H* 11/12/19 07:22 - Telemetry Sinus rhythms and dysrhythmias: sinus rhythm - Assessment/Plan Assessment/Plan: 1. Acute on chronic systolic heart failure 2. Ischemic CM EF at 15-20% on last evaluation. 3. Presence of an AICD. 4. Ongoing tobacco use 5. S/P CABG x 3 in 2011 6. NSTEMI, Type 2 NE demand ischemia. 7. Paroxysmal afb PLAN: - Will switch to PO Lasix as he is at baseline. - Will start Eliquis for stroke prophylaxis. - Continue other meds. - Likely home tomorrow if he remains stable. - Follow up in the office in 1 month.
[2019-01-11] MEDS: cefTRIAXone\\ROCEPHIN 1 GM in Sodium Chloride 0.9% 100 ML IVPB SCH (20:03)
[2019-01-11] MEDS: Atorvastatin Calcium 40 MG TAB PO SCH (20:03)
--- NOTE | 2019-01-12 05:45 | PDOC.FM ---
- Subjective Subjective: Pt reports he is still continuing to do well. He reports his breathing is much improved. He states he is ready to go home. - Objective MAR Reviewed: Yes Vital Signs & Weight: Vital Signs (12 hours) Temp Pulse Ox 01/12/19 03:37 98.5 F 01/11/19 23:20 98.6 F 01/11/19 20:00 99 01/11/19 19:42 97.6 F Weight Weight 99.065 kg Most Recent Monitor Data Heart Rate from ECG 63 NIBP 122/57 NIBP BP-Mean 78 Respiration from ECG 23 SpO2 98 I&O: 01/10/19 01/11/19 01/12/19 06:59 06:59 06:59 Intake Total 16 1360 460 Output Total 925 1350 1075 Balance -909 10 -615 Result Diagrams: 01/10/19 03:30 01/12/19 05:52 Phys Exam - Physical Examination Constitutional: NAD HEENT: moist MMs Neck: no JVD Respiratory: no wheezing, clear to auscultation bilateral (much improved) Cardiovascular: RRR, no significant murmur Gastrointestinal: soft, non-tender, no distention, positive bowel sounds Musculoskeletal: no edema, pulses present Neurological: normal sensation, moves all 4 limbs Psychiatric: A&O x 3 Skin: cap refill <2 seconds Dx/Plan (1) Acute respiratory failure with hypoxia Code(s): J96.01 - ACUTE RESPIRATORY FAILURE WITH HYPOXIA Status: Acute (2) CHF exacerbation Code(s): I50.9 - HEART FAILURE, UNSPECIFIED Status: Acute (3) HTN (hypertension) Code(s): I10 - ESSENTIAL (PRIMARY) HYPERTENSION Status: Acute (4) COPD (chronic obstructive pulmonary disease) Status: Acute Qualifiers: COPD type: emphysema (5) Coronary artery disease Code(s): I25.10 - ATHSCL HEART DISEASE OF [place] CORONARY ARTERY W/O ANG PCTRS Status: Chronic Qualifiers: Coronary Disease-Associated Artery/Lesion type: bypass graft [place] vs. transplanted heart: [place] heart Associated angina: angina presence unspecified Qualified Code(s): I25.810 - Atherosclerosis of coronary artery bypass graft(s) without angina pectoris (6) Peripheral vascular disease Code(s): I73.9 - PERIPHERAL VASCULAR DISEASE, UNSPECIFIED Status: Chronic - Plan Plan: This is a 68 yo male with a pmh of HTN, CAD, PVD, CKD3, tobacco abuse Acute hypoxic respiratory failure -Continue respiratory support as needed -Likely 2/2 CHF exacerbation, possible COPD/PNA contribution -Transitioning to PO lasix -Plan to DC on azithromycin CHF exacerbation -As above -Pending echo read -Strict I&Os/daily weights -Fluid restriction NSTEMI -Cardiology has been consulted, plan to medically manage and likely discharge today Atrial fibrillation with RVR -Currently on therapeutic lovenox -Cardiology recommendations COPD -Scheduled duonebs and daily steroids CKD3 -Monitor -Stable, slight bump in bun, likely related to lasix Tobacco abuse Addendum - Attending - Attending Attestation Date/Time: 01/12/19 1142 I personally evaluated the patient and discussed the management with Dr. Gottlieb. I agree with the History, Examination, Assessment and Plan documented above with any addition or exceptions noted below. No cp/sob/n/v/f/c. He feels great. His exam is largely unremarkable. Likely d /c today with follow up.
[2019-01-12 06:29] LABS: Anion Gap 13 mmol/L (10-20); BUN (Urea Nitrogen) 32 mg/dL (8.4-25.7); Calc. Creatinine Clearance 67 mL/min (70-130); Calcium 8.5 mg/dL (7.8-10.44); Carbon Dioxide 26 mmol/L (23-31); Chloride 106 mmol/L (98-107); Estimated GFR-MDRD 47; Glucose 118 mg/dL (80-115); Potassium 3.9 mmol/L (3.5-5.1); Sodium 141 mmol/L (136-145)
[2019-01-12 08:39] VITALS: TEMP 97.5
[2019-01-12] MEDS ORDERED: Furosemide 40 MG TAB PO SCH (09:00)
[2019-01-12] MEDS: Azithromycin 250 MG TAB PO SCH (09:11)
[2019-01-12] MEDS: predniSONE 20 MG TAB PO SCH (09:11)
[2019-01-12] MEDS: Aspirin 81 mg Enteric Coated Tablet PO SCH (09:11)
[2019-01-12] MEDS: Enoxaparin Sodium 100 MG/ML SYRINGE SC SCH (09:12)
--- NOTE | 2019-01-12 12:00 | PQF ---
DATE: 01-12-19 ATTN: JULIOCESAR ORTIZ Please exercise your independent, professional judgment in responding to the clarification form. Clinical indicators are provided on the bottom of this form for your review Please check appropriate box(es): [ x ] Sepsis due to: (Pna, COPD Exacerbation) [ ] SIRS due to non-infectious process (please specify etiology) [ ] with organ dysfunction [ ] without organ dysfunction [ ] Severe sepsis with acute organ dysfunction of: (Examples: respiratory failure, acute kidney failure, other) [ ] Other diagnosis [ ] Unable to determine In addition, please specify: Present on Admission (POA): [ x ] Yes [ ] No [ ] Unable to determine For continuity of documentation, please document condition throughout progress notes and discharge summary. Thank You. CLINICAL INDICATORS - SIGNS / SYMPTOMS / LABS / RESULTS AND LOCATION IN MR: H&P JACOBY CRISTI: 01-10-19: SIRS, UNKNOWN SOURCE, POSSIBLE COPD EXACERBATION, WITH UNDERLYING BACTERIAL ETIOLOGY, LEUKOCYTOSIS, TACHYCARDIC, TACHYPNEIC H&P DR. KARRI PAUL: 01-10-19: SIRS. THE PATIENT ACTUALLY MET SEPSIS CRITERIA UPON ADMISSION. HOWEVER SEPSIS CRITERIA WAS MET WITH ELEVATED WHITE COUNT, TACHYCARDIA AND TACHYPNEA. ABNORMAL VITAL SIGNS LIKELY DUE TO COPD/CHF EXACERBATION. WBC: 01-10-19: 14.9 01-10-19: 15.4 LACTIC ACID: 01-10-19: 4.7 RISK FACTORS / RESULTS AND LOCATION IN MR: H&P DR. KARRI PAUL: 01-10-19: SIRS. THE PATIENT ACTUALLY MET SEPSIS CRITERIA UPON ADMISSION. HOWEVER SEPSIS CRITERIA WAS MET WITH ELEVATED WHITE COUNT, TACHYCARDIA AND TACHYPNEA. ABNORMAL VITAL SIGNS LIKELY DUE TO COPD/CHF EXACERBATION MARIANA ORTIZ 01-11-19: ACUTE COPD, ACUTE HYPOXIC RESPIRATORY LIKELY 2 /2 CHF EXACERBATION, POSSIBLE COPD/PNA CONTRIBUTION TREATMENTS / RESULTS AND LOCATION IN MR: ER NOTES 01-11-19: CEFTRIAXONE IV, AZITHROMYCIN IV (This form is maintained as a part of the permanent medical record) 2014 [employer]. All Rights Reserved SCOTT [email or web address] Office: [phone] [facility]
--- NOTE | 2019-01-13 10:06 | DIS ---
DATE OF ADMISSION: 01/10/2019 DATE OF DISCHARGE: 01/12/2019 ADMITTING ATTENDING: Olvin Celeste MD DISCHARGE ATTENDING: Simone Ortiz MD. RESIDENT: Ricardo Gottlieb DO CONSULT: 1. Dr. Puma Franco. 2. Dr. Regan Beltran. PROCEDURES: 1. Echocardiogram on 01/12, showing EF of 20% to 25%, global hypokinesis. 2. A portable chest x-ray showing cardiomegaly without evidence of acute cardiopulmonary disease. 3. CTA angiogram with and without contrast of the chest showing no evidence of pulmonary thromboembolism. Small bilateral pleural effusions with adjacent atelectasis. Subtle infiltrates in the right lung. PRIMARY DIAGNOSES: Acute hypoxic respiratory failure likely secondary to chronic obstructive pulmonary disease with some exacerbation of heart failure with reduced ejection fraction. Atrial fibrillation with rapid ventricular response on arrival with resolution without medication in the ER. SECONDARY DIAGNOSES: Coronary artery disease, peripheral vascular disease, hypertension, elevated troponin, chronic kidney disease 3, tobacco abuse, depression. DISCHARGE MEDICATIONS: 1. Apixaban 5 mg p.o. b.i.d. 2. Azithromycin 250 mg p.o. daily for 3 days. 3. Prednisone 40 mg p.o. q.a.m. for 3 days. 4. Entresto decreased to the 24/26 mg tablet b.i.d. 5. ProAir 2 puffs q.4 hours p.r.n. shortness of breath or wheezing. 6. Aspirin 81 mg. 7. Atorvastatin 40 mg p.o. at bedtime. 8. Furosemide 40 mg p.o. daily. 9. Metoprolol 50 mg p.o. daily. 10. Incruse Ellipta one inhalation daily. DISCONTINUED MEDICATIONS: None. BRIEF HISTORY OF PRESENT ILLNESS/HOSPITAL COURSE: This is a 68-year-old male with past medical history as above, who presents for waking from sleep with difficulty breathing. Says he went to bed with no issue, woke up with a cough. No sputum, but wet sounds. He complains it felt like his heart was going to give out. He denies feeling any palpitations. The patient was admitted to the hospital and treated for acute hypoxic respiratory failure secondary to likely community-acquired pneumonia, mild heart failure with reduced ejection fraction, exacerbation, and COPD contributions and treated with steroids, antibiotics, DuoNeb, and Lasix. Cardiology was consulted due to his complicated cardiac history as well as his atrial fibrillation upon admission. The patient diuresed nicely as well as improved in respirations. After the 1st day of admission, the patient reports that his breathing was significantly improved. Cardiology continued to follow until the day of discharge. Vital signs remained stable. The patient was discharged on room air, saturating 95 to 100. DISPOSITION: Stable. DISCHARGE INSTRUCTIONS: 1. Location: Home. 2. Diet: Heart healthy. 3. Activity: As tolerated. 4. Follow up with Dr. Smith, gas main and line fitter; Dr. Patterson, PCP; Dr. Beltran, clerk carrier as instructed. Job ID: [id number]
== END 2019-01-12 13:50 | disposition home or self-care (01) | DRG 871 ==
LOC: ERS 00:16 → IMCU/EMU 02:23
PROVIDERS: ADMIT Family Medicine; ATTEND Family Medicine
DX: A41.9 Sepsis, unspecified organism (principal); J96.01 Acute respiratory failure with hypoxia; I50.23 Acute on chronic systolic (congestive) heart failure; I21.A1 Myocardial infarction type 2; I13.0 Hypertensive heart and chronic kidney disease with heart failure and stage 1 through stage 4 chronic kidney disease, or unspecified chronic kidney disease; J44.1 Chronic obstructive pulmonary disease with (acute) exacerbation; I16.1 Hypertensive emergency; N17.9 Acute kidney failure, unspecified; I73.9 Peripheral vascular disease, unspecified; F32.9 Major depressive disorder, single episode, unspecified; I48.91 Unspecified atrial fibrillation; E78.00 Pure hypercholesterolemia, unspecified; I25.5 Ischemic cardiomyopathy; I25.10 Atherosclerotic heart disease of native coronary artery without angina pectoris; N18.3 Chronic kidney disease, stage 3 (moderate); Z95.1 Presence of aortocoronary bypass graft; Z95.0 Presence of cardiac pacemaker; Z79.01 Long term (current) use of anticoagulants; I25.2 Old myocardial infarction
CPT/HCPCS: 36415; 71045; 71275; 80048; 80053; 82553; 82805; 83036; 83605; 83735; 83880; 84100; 84145; 84443; 84484; 85025; 85379; 87040; 87149; 90471; 90662; 93005; 93010; 93306; 93798; 94640; 94660; 94760; G0008; J0456; J0696; J1650; J1940; J2060; J2930; J3490; J7512; J7620; Q9967

== ENCOUNTER 2020-11-20 14:53 | Outpatient (CLI) | payer MEDICARE, BC | END 2020-11-20 14:54 | disposition home or self-care (01) | LOC: BICRAD 14:53 | DX: R05 Cough (principal); R09.89 Other specified symptoms and signs involving the circulatory and respiratory systems | CPT/HCPCS: 71046 ==